=== PATIENT | female | born 1965 | race Caucasian/White ===

== ENCOUNTER 2017-10-03 08:32 | Emergency (ER) | payer OTHER ==
--- NOTE | 2017-10-03 10:24 | RAD ---
LEFT SHOULDER 3 VIEWS: HISTORY: Injury. COMPARISON: None. FINDINGS: Mild degenerative change of the left glenohumeral joint with osteophyte formation. No acute displace d fracture or malalignment. Mild degenerative disease at the acromioclavicular joint. IMPRESSION: Degenerative changes. No acute abnormality. POS: [facility]
== END 2017-10-03 09:25 | disposition home or self-care (01) ==
LOC: ERS 08:32
DX: M25.512 Pain in left shoulder (principal); E11.9 Type 2 diabetes mellitus without complications; G40.909 Epilepsy, unspecified, not intractable, without status epilepticus; J44.9 Chronic obstructive pulmonary disease, unspecified; Z79.82 Long term (current) use of aspirin; Z79.899 Other long term (current) drug therapy; Z79.891 Long term (current) use of opiate analgesic; W01.198A Fall on same level from slipping, tripping and stumbling with subsequent striking against other object, initial encounter; Y92.521 Bus station as the place of occurrence of the external cause

== ENCOUNTER 2017-11-14 20:22 | Inpatient (IN) | payer OTHER ==
--- NOTE | 2017-11-14 22:04 | RAD ---
PA AND LATERAL CHEST: Date: 11/14/17 INDICATION: Cough. History of antibiotics. COMPARISON: 04/23/12. FINDINGS: No consolidation is evident. Cardiomediastinal silhouette is within normal limits. There is mild thor acolumbar scoliosis. IMPRESSION: 1. No acute cardiopulmonary abnormality. 2 Stable calcified granuloma left upper lobe. POS: [facility]
[2017-11-14] MEDS ORDERED: Morphine 4 MG/ML VIAL ONE (22:10)
[2017-11-14] MEDS ORDERED: Ondansetron ODT 4 MG TAB ONE (22:10)
[2017-11-14 22:14] LABS: #Eosinphils 0.2 thou/uL (0.0-0.7); #Lymphocytes 1.7 thou/uL (1.20-3.40); #Monocytes 0.4 thou/uL (0.11-0.59); #Neutrophils 3.6 thou/uL (1.40-6.50); %Basophils 0.5 % (0.0-1.0); %Eosinophils 3.5 % (0.0-10.0); %Lymphocytes 28.5 % (21.0-51.0); %Monocytes 7.1 % (0.0-10.0); %Neutrophils 60.4 % (42.0-75.0); Hemoglobin 14.8 g/dL (12.0-16.0); Mean Corpuscular HGB CONC 33.1 g/dL (32.0-36.0); Mean Platelet Volume 6.4 fL (7.4-10.4); Platelet Count 141 thou/uL (130-400); RBC Distribution Width 12.6 % (11.5-14.5); Red Blood Cell (RBC) Count 4.34 mill/uL (4.20-5.40); White Blood Cell (WBC) Count 5.9 thou/uL (4.8-10.8)
[2017-11-14 22:33] LABS: ALT (SGPT) 42 U/L (8-55); AST (SGOT) 40 U/L (5-34); Albumin 3.8 g/dL (3.5-5.0); Alkaline Phosphatase 146 U/L (40-150); Anion Gap 9 mmol/L (10-20); BUN (Urea Nitrogen) 13 mg/dL (9.8-20.1); Bilirubin, Total 0.3 mg/dL (0.2-1.2); CK (CPK) 40 U/L (29-168); Calc. Creatinine Clearance 0 mL/min (70-130); Calcium 9.2 mg/dL (7.8-10.44); Carbon Dioxide 29 mmol/L (22-29); Chloride 104 mmol/L (98-107); Estimated GFR-MDRD Greater than 90; Globulin 2.9 g/dL (2.4-3.5); Glucose 103 mg/dL (70-105); Magnesium 1.8 mg/dL (1.6-2.6); Potassium 3.9 mmol/L (3.5-5.1); Protein, Total 6.7 g/dL (6.0-8.3); Sodium 138 mmol/L (136-145)
[2017-11-14 22:37] LABS: CKMB 1.1 ng/mL (0-6.6); Troponin I Less than 0.010 ng/mL (< 0.028)
--- NOTE | 2017-11-14 23:19 | CT ---
CTA THORAX UTILIZING IV CONTRAST AND 3D REFORMATTED IMAGING: Date: 11/14/17 COMPARISON: Prior CT dated 10/20/13. FINDINGS: No definite central pulmonary embolus is evident. Segmental branches are difficult to evaluate, parti cularly within the lower lobes, due to respiratory motion artifact. No appreciable filling defects se en within the segmental branches of the upper lobes, right middle lobe, or superior lingula. There are prominent left hilar lymph nodes that are new. One measures 1.9 cm within the left mid bill r region. Shotty appearing prevascular lymph nodes are stable. No additional lymphadenopathy is evide nt. There is a spiculated pulmonary nodule, which is new, within the superior segment of the left lower l obe on image 52 of series 3 measuring 1.6 cm. There is cirrhotic morphology to the liver. There is recanalization of the umbilical vein. Gallbladde r is surgically absent. Adrenal glands are normal appearing. There is diffuse osteopenia. There is multilevel spondylosis of the thoracic spine. There are healing right anterolateral 5th-8th rib fractures. There is a healed left lateral 10th rib fracture and post erolateral left 11th and 12th rib fracture. IMPRESSION: 1. No definite central pulmonary embolus. 2. Motion artifact limits evaluation of segmental pulmonary branches of both lower lobes. 3. Spiculated pulmonary nodule in the superior segment of the left upper lobe with some distal retic ular nodularity within the left upper lobe suspicious for malignancy. The reticular nodularity may re flect some localized lymphangitic spread to the distal superior segment of the lower lobe versus surendra pheral bronchiolitis. There are enlarged lymph nodes in the left hilar region which are new which may reflect regional spread of disease to the lymph nodes. Follow-up PET scan is recommended. 4. Findings of cirrhosis and portal hypertension. 5. Emphysema. POS: [facility]
[2017-11-14 23:25] LABS: Actual Bicarbonate (HCO3a) 27.6 mEq/L (22-26); Base Excess (BEa) 1.3 mEq/L (0 (+/-) 2.5); CO2 Tension 50.4 mmHg (35.0-45.0); O2 Tension (PaO2) 58.4 mmHg (80.0-100.0); pH, Arterial 7.36 (7.35-7.45)
[2017-11-14 23:26] LABS: Analyzer IN Cardio ER; Calcium, Ionized 1.3 mmol/L (1.12-1.30); Hematocrit-ABG 43.3 % (36.0-47.0); Hemoglobin (Hb) 13.9 g/dL (12.0-16.0); Puncture Site LRA
[2017-11-14] MEDS ORDERED: Dexamethasone 4 mg/ml Vial ONE (23:34)
[2017-11-15 00:24] LABS: Bilirubin Negative (Negative); Blood, Urine Negative (Negative); Clarity CLEAR (Clear); Glucose, Urine (Dipstick) Negative (Negative); Leukocyte Negative (Negative); Nitrite Negative (Negative); Protein, Urine (Dipstick) Negative (Neg-Trace); Urobilinogen 0.2 mg/dL (0.2-1.0)
[2017-11-15 00:43] LABS: Specific Gravity, Urine 1.056 (1.002-1.036)
[2017-11-15] MEDS ORDERED: Morphine 4 MG/ML VIAL ONE (01:25)
[2017-11-15 02:07] LABS: Troponin I Less than 0.010 ng/mL (< 0.028)
[2017-11-15] MEDS ORDERED: Morphine 4 MG/ML VIAL SLOW IVP PRN ×2 (02:34)
[2017-11-15] MEDS ORDERED: Lorazepam 2 MG/ML VIAL SLOW IVP PRN (02:36)
[2017-11-15] MEDS ORDERED: Sodium Chloride 0.9% 1,000 ML IV SCH (02:45)
[2017-11-15] MEDS ORDERED: Benzonatate 100 MG CAP PO PRN (03:42)
[2017-11-15] MEDS ORDERED: Acetaminophen 325 MG TAB PO PRN (03:42)
[2017-11-15] MEDS ORDERED: Diabetic Tussin 200 MG/10 ML UDCUP PO PRN (03:42)
[2017-11-15] MEDS ORDERED: Mag-Al 1200 mg/1200 mg/30 ML UDCUP PO PRN (03:42)
[2017-11-15] MEDS ORDERED: Bisacodyl 5 MG TAB PO PRN ×2 (03:42)
[2017-11-15] MEDS ORDERED: Nitroglycerin 0.4 MG TAB (25 Tab Bottle) SL PRN (03:42)
[2017-11-15] MEDS ORDERED: Ondansetron HCl/PF 4 MG/2 ML Vial IVP PRN (03:42)
[2017-11-15] MEDS ORDERED: Loratadine 10 MG TAB PO PRN (03:42)
[2017-11-15] MEDS ORDERED: hydrALAZINE 20 MG/ML VIAL SLOW IVP PRN (03:42)
[2017-11-15] MEDS ORDERED: cloNIDine 0.1 MG TAB PO PRN (03:42)
[2017-11-15] MEDS ORDERED: Senokot 8.6 MG TAB PO PRN (03:42)
[2017-11-15] MEDS ORDERED: Calcium Carbonate 500 MG ChewTAB PO PRN (03:42)
[2017-11-15] MEDS ORDERED: HumaLOG 300 UNITS/3 ML VIAL SC PRN ×2 (04:15)
[2017-11-15] MEDS ORDERED: Dextrose 5% in Water 1,000 ML IV PRN (04:15)
[2017-11-15] MEDS ORDERED: Dextrose 50% Abboject 50 ML SYRINGE SLOW IVP PRN (04:15)
[2017-11-15 05:00] VITALS: BMI 33.5
[2017-11-15 05:15] LABS: Troponin I Less than 0.010 ng/mL (< 0.028)
--- NOTE | 2017-11-15 05:20 | HP ---
DATE OF ADMISSION: 11/15/2017 PRIMARY CARE PHYSICIAN: Dr. Rojas PRIMARY MASTER DATA ANALYST: Dr. Worthington. CHIEF COMPLAINT: Worsening shortness of breath and persistent cough for 2 months. HISTORY OF PRESENT ILLNESS: Ms. Payton is a 52-year-old female with known history of obstructive slee p apnea: COPD, tobacco abuse, diabetes, hepatitis C, bipolar illness and liver cirrhosis, who came t o the emergency room with complaints of shortness of breath and cough for 2 months. History is mainly obtained by the patient herself and electronical medical records have been reviewed . According to Ms. Payton, she has been feeling poorly for about 2 months. She was living with her son and [id number] in poor living conditions, where she was not able to get her medications, her CPA P at night or her inhalers and nebulizers. She reports that they were doing drugs and smoking and sh e was exposed to this. She has been having shortness of breath, which has worsened over the course o f last 2 months and the persistent cough. She recently moved here with her brother to be out of the unhealthy environment and has set up care with her concert pianist, Dr. Worthington again. She is in the process of getting the sleep study done, but currently she is without the CPAP. She was treated as an outpatient by Dr. Worthington with the oral steroids and antibiotics recently for her persistent sym ptoms, but it did not help. She has been more and more short of breath and has been having severe di fficulty to lie flat and has to sleep propped up. She denies any fever or chills, but endorses gener alized weakness and malaise. She is bringing up greenish sputum with her cough. She denies any othe r recent illnesses. Upon presentation to the emergency room, she was 97% on room air, but according to the ER physician guerrero ssistaishwarya who admitted this patient, her oxygen saturation did drop to low 80s on ambulation. This re quired starting her on a BiPAP. She was diagnosed with having COPD exacerbation and was given nebuli zers as well as IV steroids in the form of Decadron. She is now being admitted to [facility] for COPD exac erbation leading to acute hypoxic respiratory failure. Since she has been up in the [facility]. She has been weaned off of the BiPAP and is comfortable on nasal cannula. PAST MEDICAL HISTORY: 1. Obstructive sleep apnea. 2. COPD. 3. Ongoing tobacco abuse. She smokes about 2.5 pack per day and according to her she is "quit" 5 da ys ago. 4. History of hepatitis C. 5. Diabetes mellitus. 6. Schizoaffective disorder. PAST SURGICAL HISTORY: 1. Cholecystectomy. 2. Hysterectomy. 3. Tonsillectomy. 4. Bilateral knee replacement. ALLERGIES: No known medication allergies. CURRENT MEDICATIONS: She is taking inhaler and DuoNebs again, but other than that she does not take any of the medication according to her. FAMILY HISTORY: Significant for coronary artery disease, diabetes, hypertension, and cancer. SOCIAL HISTORY: A [id number] smoking history or 2.5 pack per a day. No history of drug or alcohol abuse. She is currently living with one of her friends and her brother. REVIEW OF SYSTEMS: A 12-point review of systems was done. It is negative except those mentioned in the history and physical. The following complete review of systems was negative, unless otherwise me ntioned in the HPI or below: Constitutional: Weight loss or gain, ability to conduct usual activiti es. Skin: Rash, itching. Eyes: Double vision, pain. ENT/Mouth: Nose bleeding, neck stiffness, p ain, tenderness. Cardiovascular: Palpitations, dyspnea on exertion, orthopnea. Respiratory: Short ness of breath, wheezing, cough, hemoptysis, fever or night sweats. Gastrointestinal: Poor appetite , abdominal pain, heartburn, nausea, vomiting, constipation, or diarrhea. Genitourinary: Urgency, f requency, dysuria, nocturia. Musculoskeletal: Pain, swelling. Neurologic/Psychiatric: Anxiety, de pression. Allergy/Immunologic: Skin rash, bleeding tendency. LABORATORY DATA: CBC is unremarkable. D-dimer 0.64. ABG upon presentation showed pH of 7.36, pCO2 of 50, pO2 of 58. Serum chemistries unremarkable. Troponin less than 0.010 x2. BNP normal. Urinal ysis normal. Chest x-ray by my review has no evidence to suggest any infiltrate, edema. CT angio of the thorax was done because of elevated D-dimer. It is negative for any pulmonary embolism, but did show spiculated pulmonary nodule in the superior segment of the left upper lobe with some associated lymphadenopathy in the perihilar region. She also has findings of cirrhosis and portal hypertension , and emphysema. PHYSICAL EXAMINATION: VITAL SIGNS: She is currently saturating 95% on 2 liters nasal cannula. Heart rate is 72, blood pre ssure upon presentation 135/83, respirations 20, temperature 99.1. GENERAL: No acute distress. She appears comfortable at this time. Awake, alert, oriented x3. HEENT: Mucous membrane is moist and pink. No oropharyngeal exudate or erythema. NECK: Supple without any lymphadenopathy, JVD or bruit. CHEST: Clear to auscultation without any wheezing, rales or rhonchi at this time. Rate and rhythm i s regular without any murmur, rubs or gallops. ABDOMEN: Soft, nontender, nondistended with positive bowel sounds. EXTREMITIES: Free of any cyanosis, clubbing, or edema. NEUROLOGIC: Nonfocal. SKIN: Free of any rashes or bruises. I feel warm and dry to touch. IMPRESSION AND PLAN: 1. Acute hypoxic respiratory failure. This is secondary to chronic obstructive pulmonary disease ex acerbation. The patient has been started on BiPAP and since then has been weaned off of it and is cu rrently saturating well on oxygen with nasal cannula. She will be continued on IV steroids in the fo rm of methylprednisolone as well as nebulizer scheduled as needed. We will start her on CPAP in the hospital at night for her history of sleep apnea. She will be given oral antibiotic empirically for COPD exacerbation as she has been having productive cough. Add Mucinex and incentive spirometry as w ell. 2. Pulmonary nodule. We will request consultation with Pulmonary Medicine while in the hospital. Nancy daley, the patient can follow up with her own concert pianist, Dr. Worthington as an outpatient. She would require CT scan of the chest at least every few months to monitor the progress of the pulmonary nodule. 3. Tobacco abuse. The patient has been counseled. We will continue her nicotine patch, which she s tates she has been using for the last few days. 4. History of cirrhosis and portal hypertension likely because of hepatitis C. Currently, the patie nt is not having any acute liver failure and appears euvolemic. We will avoid any IV fluids to preve nt fluid overload. 5. Obstructive sleep apnea, CPAP at night while she is in the hospital. She will finish her sleep s tudy as an outpatient with her concert pianist. 6. History of schizoaffective disorder, currently not on any medications and appears stable. 7. Diabetes mellitus. Once again at this time she is not taking any medications for this and her bl ood sugar is 103. I am not sure this is a true diagnosis or not. At this time, she will not be deonna aquiles with metformin, but because she is going to be on the Solu-Medrol, we will start her on insulin s liding scale with p.r.n. coverage with frequent Accu-Cheks. 8. Code status: FULL CODE. Discussed with the patient. DISPOSITION: Ms. Payton is currently being admitted to the hospital for acute hypoxic respiratory dereck lure due to acute chronic obstructive pulmonary disease exacerbation. Estimated length of stay is at least 2-3 midnight. Further management will depend upon her clinical course. She is currently hemo dynamically stable and has been weaned off of BiPAP successfully so far.
[2017-11-15] MEDS: Lorazepam 1 MG TAB PO PRN ×2 (05:31→17:57)
[2017-11-15] MEDS ORDERED: Spiriva 18 MCG CAP (Box of 5 Caps) INH SCH (07:00)
[2017-11-15] MEDS: HYDROcodone/Acetaminophen 5/325 mg Tablet PO PRN ×3 (08:39→20:27)
[2017-11-15] MEDS: Famotidine 20 MG TAB PO SCH ×2 (08:39→20:27)
[2017-11-15] MEDS: Enoxaparin Sodium 40 MG/0.4 ML SYRINGE SC SCH (08:39)
[2017-11-15] MEDS: guaiFENesin ER 600 MG TAB PO SCH ×2 (08:39→20:27)
[2017-11-15] MEDS: Nicotine 21 MG PATCH TD SCH (08:40)
[2017-11-15] MEDS: Amoxicillin/Potassium Clav 875 MG TAB PO SCH ×2 (08:46→20:27)
--- NOTE | 2017-11-15 08:46 | CON ---
DATE OF CONSULTATION: 11/15/2017 REASON FOR CONSULTATION: COPD exacerbation and lung nodule. HISTORY OF PRESENT ILLNESS: The patient is a 52-year-old female who sees Dr. Oliveira for pulmonary c oncerns. She was admitted to the hospital last night with a COPD exacerbation. She was briefly on B iPAP, but that was taken off this morning. She now feels better. She had incidental finding of a 1. 5 cm left lower lobe pulmonary nodule, which appears to be in the superior segment. She has never be en told that she had a pulmonary nodule in the past. She has a 2-1/2 half pack per day history of smoking, but says she quit smoking last after navdeep eing prescribed nicotine patch by her primary doctor. PAST MEDICAL HISTORY: 1. Chronic obstructive pulmonary disease. 2. Obstructive sleep apnea. 3. Tobacco abuse. 4. Hepatitis C. 5. Diabetes mellitus. 6. Schizoaffective disorder. PAST SURGICAL HISTORY: 1. Cholecystectomy. 2. Hysterectomy. 3. Tonsillectomy. 4. Bilateral knee replacement. ALLERGIES: None. MEDICATIONS PRIOR TO ADMISSION: DuoNeb. FAMILY MEDICAL HISTORY: Remarkable for diabetes, hypertension, coronary artery disease, cancer. SOCIAL HISTORY: Two and a half pack per day history of smoking for the last 40 years. Does not cons ume alcohol or use illicit drugs. REVIEW OF SYSTEMS: Negative. PHYSICAL EXAMINATION: VITAL SIGNS: Temperature 98.4, pulse 80, respirations 15, O2 sat 98% on 2 liters, blood pressure 126 /85. GENERAL: She is awake and alert, in no distress. HEENT: Unremarkable. NECK: No JVD, no bruits. LUNGS: Very distant and expiratory wheezing with no accessory muscle use. CARDIOVASCULAR: S1, S2 regular. ABDOMEN: Soft, nontender. EXTREMITIES: No clubbing, cyanosis, or edema. LABORATORY DATA: White blood cell count 5.9, hematocrit 44, platelet count 141. PH 7.36, pCO2 50, p O2 58. Sodium 138, potassium 3.9, chloride 104, CO2 29, BUN 13, creatinine 0.6, glucose 103. ASSESSMENT: 1. Chronic obstructive pulmonary disease with exacerbation. 2. Tobacco abuse. 3. A 1.5 cm left lower lobe lung nodule with a left hilar lymph node. RECOMMENDATIONS: 1. She will be transferred to the floor. 2. Continue steroids, nebulization treatments. 3. Discontinue BiPAP. 4. She will need further workup for the lung nodule as an outpatient. She has seen Dr. Mesa here in the past and also was seeing Dr. Oliveira at [facility].
[2017-11-15] MEDS ORDERED: Meloxicam 15 MG TAB PO SCH (23:45)
[2017-11-16] MEDS: HYDROcodone/Acetaminophen 5/325 mg Tablet PO PRN ×3 (04:40→14:57)
[2017-11-16 04:48] LABS: #Lymphocytes 0.7 thou/uL (1.20-3.40); #Monocytes 0.2 thou/uL (0.11-0.59); #Neutrophils 6.2 thou/uL (1.40-6.50); %Basophils 0.1 % (0.0-1.0); %Eosinophils 0.1 % (0.0-10.0); %Lymphocytes 10.2 % (21.0-51.0); %Monocytes 3.1 % (0.0-10.0); %Neutrophils 86.5 % (42.0-75.0); Hemoglobin 14.8 g/dL (12.0-16.0); Mean Corpuscular HGB CONC 33.6 g/dL (32.0-36.0); Mean Corpuscular Hemoglobin 34.5 pg (27.0-31.0); Mean Platelet Volume 6.7 fL (7.4-10.4); Platelet Count 131 thou/uL (130-400); RBC Distribution Width 12.4 % (11.5-14.5); Red Blood Cell (RBC) Count 4.27 mill/uL (4.20-5.40); White Blood Cell (WBC) Count 7.1 thou/uL (4.8-10.8)
[2017-11-16 05:21] LABS: Anion Gap 12 mmol/L (10-20); BUN (Urea Nitrogen) 8 mg/dL (9.8-20.1); Calc. Creatinine Clearance 184 mL/min (70-130); Calcium 9.5 mg/dL (7.8-10.44); Carbon Dioxide 22 mmol/L (22-29); Chloride 109 mmol/L (98-107); Estimated GFR-MDRD Greater than 90; Glucose 153 mg/dL (70-105); Potassium 4.2 mmol/L (3.5-5.1); Sodium 139 mmol/L (136-145)
[2017-11-16] MEDS ORDERED: Meloxicam 15 MG TAB PO SCH ×2 (09:00→21:00)
[2017-11-16] MEDS: Amoxicillin/Potassium Clav 875 MG TAB PO SCH (09:20)
[2017-11-16] MEDS: guaiFENesin ER 600 MG TAB PO SCH (09:20)
[2017-11-16] MEDS: Enoxaparin Sodium 40 MG/0.4 ML SYRINGE SC SCH (09:21)
[2017-11-16] MEDS: Nicotine 21 MG PATCH TD SCH (09:22)
--- NOTE | 2017-11-16 09:55 | PRG ---
DATE OF SERVICE: 11/16/2017 Remote history of seeing the patient some 5-6 years ago. [facility] She presented with increased shortness of breath and cough. She smoked up to a pack and a half about a week ago. She is coughing and wheezing, but she seems much better. She is scheduled to have an outpatient sleep study done in the near future. PHYSICAL EXAMINATION: VITAL SIGNS: Sats are 93 on room air, respiration 16, temperature 97, blood pressure 120/87. CHEST: Chest reveals decreased breath sounds, no wheezing. CARDIAC: Normal S1, S2. No gallops. ABDOMEN: Soft, no masses. IMPRESSION: 1. Chronic obstructive pulmonary disease. 2. Sleep apnea. 3. Bipolar. PLAN: Her lab looks normal including electrolytes, CBC. Suggest switching over to oral prednisone. She can be discharged home to follow up with her primary care telecom analyst.
[2017-11-16] MEDS: Famotidine 20 MG TAB PO SCH (10:01)
[2017-11-16 11:11] VITALS: BP 135/88; TEMP 97.9
--- NOTE | 2017-11-16 19:14 | DIS ---
DATE OF ADMISSION: 11/15/2017 DATE OF DISCHARGE: 11/16/2017 PRIMARY CARE PROVIDER: Tarik Rojas D.O. DISCHARGE DIAGNOSES: 1. Acute hypoxic respiratory failure. 2. Chronic obstructive pulmonary disease exacerbation. 3. Pulmonary nodule. CONDITION OF PATIENT ON THE DAY OF DISCHARGE: Stable. I assess Ms. Payton on the day of discharge. She denies any chest pain or shortness of breath. Cough is better. Vital signs are stable and she i s saturating well on room air. S1 and S2 are heard, regular. Lungs are clear to auscultation bilate rally. CONSULTATIONS DURING THIS HOSPITALIZATION: Pulmonology, Dr. Sharpe. DISCHARGE MEDICATIONS: Albuterol nebulizers 3 times a day as needed, Augmentin 875 mg 2 times a day for 5 more days, Coreg 25 mg 2 times a day, esomeprazole 40 mg daily, Lasix 40 mg daily, gabapentin 3 00 mg 2 times a day, meloxicam 15 mg daily, metformin 500 mg 2 times a day, Medrol Dosepak, nicotine 21 mg daily patch, phenytoin 300 mg at bedtime and 200 mg in the morning, pravastatin 40 mg at bedtim e, quetiapine 400 mg at bedtime, VESIcare 10 mg daily, Spiriva 18 mcg inhalation daily, Topamax 50 mg at bedtime and Venlafaxine 150 mg daily. HOSPITAL COURSE: Ms. Payton is a pleasant 52-year-old lady who was admitted to [facility] on 11/15/2017 for acute hypoxic respiratory failure due to chronic obstructive pulmonary disease. Please refer to history and physical note dictated by Dr. Morgan for further information. She was briefly treated with bilevel positive airway pressure and subsequently was treated with oxyg en, steroids, bronchodilators and antibiotics. She improved clinically. She also had a CT angiogram of the chest on 11/14/2017, which did not show any definite central pulmo nary embolus. She had a spiculated pulmonary nodule in the superior segment of the left upper lobe w ith some distal reticular nodularity within the left upper lobe suspicious for malignancy. The retic ular nodularity may reflect some localized lymphangitic spread to the distal superior segment of the lower lobe versus peripheral bronchiolitis. There are enlarged lymph nodes in the left hilar region which are new, which may reflect regional spread of disease to the lymph nodes. Radiologist recommen ds follow up PET scan. After discussion with the patient, she wants to follow up with her own manager entry regarding the CT scan findings. She has also been advised to stop smoking. On the day of discharge, she has normal white count, normal hemoglobin, normal platelet count, normal sodium, normal potassium, and creatinine of 0.52. Many thanks for allowing me to participate in your patient's care. Please feel free to contact me wi th any questions or concerns. DISCHARGE DESTINATION: Home. TOTAL AMOUNT OF TIME SPENT COORDINATING THIS DISCHARGE: 33 minutes.
== END 2017-11-16 16:50 | disposition home or self-care (01) | DRG 190 ==
LOC: ERS 20:22 → IMCU/EMU 11-15 01:09 → T4-B 11-15 09:45
PROVIDERS: ADMIT Internal Medicine; ATTEND Internal Medicine
DX: J44.1 Chronic obstructive pulmonary disease with (acute) exacerbation (principal); J96.01 Acute respiratory failure with hypoxia; G47.30 Sleep apnea, unspecified; F31.9 Bipolar disorder, unspecified; F17.200 Nicotine dependence, unspecified, uncomplicated; B19.20 Unspecified viral hepatitis C without hepatic coma; E11.9 Type 2 diabetes mellitus without complications; F25.9 Schizoaffective disorder, unspecified; Z96.653 Presence of artificial knee joint, bilateral; R91.1 Solitary pulmonary nodule
CPT/HCPCS: 36415; 36416; 71046; 71275; 80048; 80053; 81003; 82550; 82553; 82805; 83605; 83735; 83880; 84484; 85025; 85379; 87040; 87077; 87086; 87186; 90471; 90732; 93005; 94640; 94660; 96374; 96376; G0009; J0360; J1100; J1650; J2270; J2920; J7620; Q0162

== ENCOUNTER 2017-12-27 07:57 | Outpatient (CLI) | payer OTHER ==
--- NOTE | 2017-12-27 10:35 | PET ---
PET CT: HISTORY: A 52-year-old female with solitary pulmonary nodule in the superior segment of the left lower lobe on CT scan of chest dated 11/14/17. TECHNIQUE: PET scanning with CT attenuation correction was performed from the base of the brain through the prox imal thighs following the intravenous administration of 12.2 mCi of [id number] in the rig ht antecubital fossa. Imaging is performed after an uptake interval of 48 minutes. CORRELATION: CTA chest 11/14/17. COMPARISON: No previous PET scans are available for comparison. FINDINGS: The 1.6 cm parenchymal nodule in the superior segment of the left lower lobe does not demonstrate abn ormal FDG localization and has an SUV of 1.32. However, there is hypermetabolic activity in the left hilar lymphadenopathy with an acute SUV of 4.3. In the right side of the neck at the level of the medial aspect of the right parotid gland, there is focal increased uptake with an SUV of 4. It cannot be said with certainty if this is part of the med ial parotid gland or a lymph node. No hypermetabolic mediastinal, right hilar, axillary, or abdominopelvic lymph nodes are seen. No hyp ermetabolic liver, adrenal, or skeletal lesions are identified. There is physiologic activity in the heart, GI and tracts. Increased uptake in the skeletal muscu lature also appears to be physiologic. The CT scan used for attenuation correction demonstrates no evidence of pleural effusions or ascites. The liver is cirrhotic. IMPRESSION: 1. Hypermetabolic left hilar lymphadenopathy is a suspicious finding. 2. The pulmonary nodule in the superior segment of the left lower lobe demonstrates no abnormal fluo rodeoxyglucose localization. 3. Focally increased uptake in the region of the right medial parotid gland warrants further evaluat ion with a contrast-enhanced CT scan of the neck. POS: [facility]
== END 2017-12-27 07:58 | disposition home or self-care (01) ==
LOC: PET 07:57
PROVIDERS: ATTEND Internal Medicine Pulmonary Disease
DX: R91.1 Solitary pulmonary nodule (principal); R93.8 Abnormal findings on diagnostic imaging of other specified body structures
CPT/HCPCS: 78815; A9552

== ENCOUNTER 2018-01-06 17:57 | Emergency (ER) | payer OTHER ==
[2018-01-06] MEDS ORDERED: Ibuprofen 200 MG TAB ONE (18:28)
--- NOTE | 2018-01-06 18:45 | RAD ---
PA CHEST AND RIGHT RIBS: 01/06/18 Total four views. HISTORY: Injury. The lung garduno are clear. Heart and mediastinum unremarkable. Ribs appear unremarkable. No acute rib fracture identified. IMPRESSION: No acute findings. POS: [facility]
== END 2018-01-06 19:25 | disposition home or self-care (01) ==
LOC: ERS 17:57
DX: S20.211A Contusion of right front wall of thorax, initial encounter (principal); I50.9 Heart failure, unspecified; E11.9 Type 2 diabetes mellitus without complications; K74.60 Unspecified cirrhosis of liver; J45.909 Unspecified asthma, uncomplicated; F17.210 Nicotine dependence, cigarettes, uncomplicated; Z79.84 Long term (current) use of oral hypoglycemic drugs; Z79.899 Other long term (current) drug therapy; G40.909 Epilepsy, unspecified, not intractable, without status epilepticus; W22.8XXA Striking against or struck by other objects, initial encounter

== ENCOUNTER 2018-01-08 12:09 | Emergency (ER) | payer OTHER ==
[2018-01-08 12:55] LABS: Bilirubin Negative (Negative); Blood, Urine Negative (Negative); Clarity CLEAR (Clear); Glucose, Urine (Dipstick) Negative (Negative); Leukocyte Negative (Negative); Nitrite Negative (Negative); Protein, Urine (Dipstick) Negative (Neg-Trace); Specific Gravity, Urine 1.016 (1.002-1.036)
== END 2018-01-08 14:48 | disposition home or self-care (01) ==
LOC: ERS 12:09
DX: G89.29 Other chronic pain (principal); M54.9 Dorsalgia, unspecified; F31.9 Bipolar disorder, unspecified; G40.909 Epilepsy, unspecified, not intractable, without status epilepticus; I50.9 Heart failure, unspecified; E11.9 Type 2 diabetes mellitus without complications; J44.9 Chronic obstructive pulmonary disease, unspecified; G47.30 Sleep apnea, unspecified; F17.210 Nicotine dependence, cigarettes, uncomplicated
CPT/HCPCS: 81003; 99285

== ENCOUNTER 2018-05-23 20:49 | Emergency (ER) | payer OTHER ==
[2018-05-23] MEDS ORDERED: Ketorolac Tromethamine 60 MG/2 ML VIAL ONE (21:47)
--- NOTE | 2018-05-23 22:25 | RAD ---
LUMBAR SPINE THREE VIEWS: History: Back pain after fall. FINDINGS: Lumbar vertebrae maintain height. Degenerative osteophytes are seen. Facet hypertrophy. Slight disha listhesis of L4-5. No evidence of acute compression. IMPRESSION: Degenerative changes as described. POS: [facility]
--- NOTE | 2018-05-23 22:26 | RAD ---
RIGHT HIP TWO VIEWS: History: Fall with hip pain. FINDINGS: No evidence of fracture. Femoral head contour is normal. No osseous abnormality. IMPRESSION: No acute finding. POS: [facility]
== END 2018-05-23 22:16 | disposition home or self-care (01) ==
LOC: ERS 20:49
DX: S70.01XA Contusion of right hip, initial encounter (principal); G40.909 Epilepsy, unspecified, not intractable, without status epilepticus; I50.9 Heart failure, unspecified; E11.9 Type 2 diabetes mellitus without complications; J45.909 Unspecified asthma, uncomplicated; G47.30 Sleep apnea, unspecified; F31.9 Bipolar disorder, unspecified; F20.9 Schizophrenia, unspecified; F17.210 Nicotine dependence, cigarettes, uncomplicated; W17.89XA Other fall from one level to another, initial encounter
CPT/HCPCS: 72100; 96372; J1885

== ENCOUNTER 2018-06-19 16:21 | Emergency (ER) | payer OTHER ==
--- NOTE | 2018-06-19 17:59 | CT ---
CT CERVICAL SPINE NONCONTRAST: HISTORY: 52-year-old female status post acute cervical trauma from fall. FINDINGS: There are no jumped or perched facets. There is no evidence of acute fracture. The vertebral body h eights are maintained. There is no prevertebral soft tissue swelling. IMPRESSION: No evidence of acute fracture or acute traumatic subluxation. jennifer POS: [facility]
--- NOTE | 2018-06-19 18:05 | CT ---
CT HEAD WITHOUT CONTRAST: Technique: Multiple contiguous axial images were obtained through the head without IV enhancement. Indications: Trauma. Fall with injury to head. FINDINGS: Ventricles have normal size and position. No evidence of intracranial hemorrhage. No mass or edema id entified. IMPRESSION: No acute abnormality identified. POS: [facility]
== END 2018-06-19 18:30 | disposition home or self-care (01) ==
LOC: ERS 16:21
DX: S09.90XA Unspecified injury of head, initial encounter (principal); G40.909 Epilepsy, unspecified, not intractable, without status epilepticus; I50.9 Heart failure, unspecified; E11.9 Type 2 diabetes mellitus without complications; J45.909 Unspecified asthma, uncomplicated; M19.90 Unspecified osteoarthritis, unspecified site; G47.30 Sleep apnea, unspecified; F20.9 Schizophrenia, unspecified; F31.9 Bipolar disorder, unspecified; F17.210 Nicotine dependence, cigarettes, uncomplicated; Z79.899 Other long term (current) drug therapy; Z79.84 Long term (current) use of oral hypoglycemic drugs; W01.0XXA Fall on same level from slipping, tripping and stumbling without subsequent striking against object, initial encounter
CPT/HCPCS: 70450; 72125

== ENCOUNTER 2019-06-13 14:04 | Outpatient (CLI) | payer OTHER ==
--- NOTE | 2019-06-13 15:00 | MMO ---
Bilateral MAMMO Bilat Diag DDI+SHILOH. CLINICAL HISTORY: Patient is 53 years old and is seen for diagnostic exam and lump or thickening in the left breast. The patient has the following family history of breast cancer: paternal aunt. The patient has no personal history of cancer. VIEWS: The views performed were: bilateral craniocaudal with tomosynthesis; bilateral mediolateral oblique with tomosynthesis; and bilateral mediolateral with tomosynthesis. FILMS COMPARED: The present examination has been compared to prior imaging studies performed at [facility] on 06/13/2019, and at [facility] on 07/27/2007 and 03/07/2009. This study has been interpreted with the assistance of computer-aided detection. MAMMOGRAM FINDINGS: There are scattered fibroglandular densities. There are benign appearing calcifications seen in both breasts. There are no suspicious masses, suspicious calcifications, or new areas of architectural distortion. IMPRESSION: THERE IS NO MAMMOGRAPHIC EVIDENCE OF MALIGNANCY. A ROUTINE FOLLOW-UP MAMMOGRAM IN 1 YEAR IS RECOMMENDED. THE RESULTS OF THIS EXAM WERE SENT TO THE PATIENT. ACR BI-RADS Category 2 - Benign finding MAMMOGRAPHY NOTE: 1. A negative mammogram report should not delay a biopsy if a dominant of clinically suspicious mass is present. 2. Approximately 10% to 15% of breast cancers are not detected by mammography. 3. Adenosis and dense breasts may obscure an underlying neoplasm. Reported by: ROSEMARIE LAUGHLIN MD Electonically Signed: [id number]
--- NOTE | 2019-06-13 15:05 | ULT ---
LEFT BREAST ULTRASOUND: Date: 06/13/19 COMPARISON: Mammogram dated 06/13/19. HISTORY: Palpable mass in the anterior left breast at 12 o'clock, approximately 1.0 cm from the nipple. TECHNIQUE: Multiplanar Mercado scale and color Doppler images were obtained in a left breast ultrasound. FINDINGS: Normal appearing breast parenchyma is seen at the area of palpable abnormality. No suspicious shadowi ng or mass is seen. IMPRESSION: BI-RADS Category 1 - Negative. Annual screening mammography is recommended. POS: [facility]
== END 2019-06-13 14:05 | disposition home or self-care (01) ==
LOC: BICMAMMO 14:04
PROVIDERS: ATTEND Family Medicine
DX: N63.0 Unspecified lump in unspecified breast (principal)
CPT/HCPCS: 77066; G0279

== ENCOUNTER 2019-06-15 20:59 | Emergency (ER) | payer OTHER ==
[2019-06-15 21:25] LABS: #Basophils 0.1 thou/uL (0.0-0.2); #Eosinphils 0.2 thou/uL (0.0-0.7); #Lymphocytes 3.5 thou/uL (1.20-3.40); #Monocytes 0.6 thou/uL (0.11-0.59); #Neutrophils 5.3 thou/uL (1.40-6.50); %Basophils 0.8 % (0.0-1.0); %Eosinophils 1.9 % (0.0-10.0); %Lymphocytes 36.2 % (21.0-51.0); %Monocytes 5.7 % (0.0-10.0); %Neutrophils 55.3 % (42.0-75.0); Hemoglobin 15.5 g/dL (12.0-16.0); Mean Corpuscular HGB CONC 34.2 g/dL (32.0-36.0); Mean Corpuscular Hemoglobin 34.2 pg (27.0-31.0); Mean Corpuscular Volume 99.9 fL (78.0-98.0); Mean Platelet Volume 6.7 fL (7.4-10.4); Platelet Count 175 thou/uL (130-400); RBC Distribution Width 12.2 % (11.5-14.5); Red Blood Cell (RBC) Count 4.53 mill/uL (4.20-5.40); White Blood Cell (WBC) Count 9.6 thou/uL (4.8-10.8)
--- NOTE | 2019-06-15 21:52 | RAD ---
EXAM: Portable chest PROVIDED CLINICAL HISTORY: Dyspnea COMPARISON: 10/20/2013 FINDINGS: Cardiac and mediastinal silhouette is within normal limits. No focal consolidation, pleural fluid or pneumothorax evident. IMPRESSION: No evidence for an acute cardiopulmonary process.
[2019-06-15 22:27] LABS: Albumin 4.2 g/dL (3.5-5.0)
[2019-06-15 22:28] LABS: Chloride 104 mmol/L (98-107); Sodium 141 mmol/L (136-145)
[2019-06-15 22:29] LABS: Calcium 9.2 mg/dL (7.8-10.44); Glucose 117 mg/dL (70-105)
[2019-06-15 22:30] LABS: Globulin 2.6 g/dL (2.4-3.5); Protein, Total 6.8 g/dL (6.0-8.3)
[2019-06-15 22:31] LABS: Anion Gap 11 mmol/L (10-20); Bilirubin, Total 0.4 mg/dL (0.2-1.2); Carbon Dioxide 30 mmol/L (22-29)
[2019-06-15 22:32] LABS: Alkaline Phosphatase 106 U/L (40-110)
[2019-06-15 22:33] LABS: Calc. Creatinine Clearance 0 mL/min (70-130); Estimated GFR-MDRD 76
[2019-06-15 22:34] LABS: BUN (Urea Nitrogen) 15 mg/dL (9.8-20.1)
[2019-06-15 22:35] LABS: ALT (SGPT) 31 U/L (8-55); AST (SGOT) 21 U/L (5-34)
== END 2019-06-15 23:15 | disposition home or self-care (01) ==
LOC: ERS 20:59
DX: J44.1 Chronic obstructive pulmonary disease with (acute) exacerbation (principal); G40.909 Epilepsy, unspecified, not intractable, without status epilepticus; I50.9 Heart failure, unspecified; E11.9 Type 2 diabetes mellitus without complications; J45.909 Unspecified asthma, uncomplicated; M19.90 Unspecified osteoarthritis, unspecified site; G47.30 Sleep apnea, unspecified; F20.9 Schizophrenia, unspecified; F31.9 Bipolar disorder, unspecified; F17.210 Nicotine dependence, cigarettes, uncomplicated; Z79.84 Long term (current) use of oral hypoglycemic drugs; Z71.6 Tobacco abuse counseling; Z79.899 Other long term (current) drug therapy
CPT/HCPCS: 36415; 71045; 80053; 85025; 93005

== ENCOUNTER 2019-07-22 00:53 | Emergency (ER) | payer OTHER ==
[2019-07-22] MEDS ORDERED: Ketorolac Tromethamine 30 MG/ML VIAL ONE (01:07)
--- NOTE | 2019-07-22 08:03 | RAD ---
EXAM: XR Hip Lt 2-3 View PROVIDED CLINICAL HISTORY: Pain FINDINGS: There is no evidence for fracture or other acute osseous abnormality. Postoperative changes of left t otal hip arthroplasty are demonstrated, without evidence for hardware loosening or migration. IMPRESSION: No evidence for an acute osseous abnormality. If there is persistent clinical concern, conservative m anagement and follow-up imaging advised.
== END 2019-07-22 02:05 | disposition home or self-care (01) ==
LOC: ERS 00:53
DX: S39.011A Strain of muscle, fascia and tendon of abdomen, initial encounter (principal); M79.605 Pain in left leg; G40.909 Epilepsy, unspecified, not intractable, without status epilepticus; I50.9 Heart failure, unspecified; E11.9 Type 2 diabetes mellitus without complications; J43.9 Emphysema, unspecified; M19.90 Unspecified osteoarthritis, unspecified site; G47.30 Sleep apnea, unspecified; F31.9 Bipolar disorder, unspecified; F20.9 Schizophrenia, unspecified; F17.210 Nicotine dependence, cigarettes, uncomplicated; Z79.84 Long term (current) use of oral hypoglycemic drugs; Z79.899 Other long term (current) drug therapy; W01.0XXA Fall on same level from slipping, tripping and stumbling without subsequent striking against object, initial encounter
CPT/HCPCS: 96372; J1885

== ENCOUNTER 2019-08-01 18:17 | Emergency (ER) | payer OTHER ==
[2019-08-01] MEDS ORDERED: Ketorolac Tromethamine 30 MG/ML VIAL ONE (20:52)
--- NOTE | 2019-08-01 21:09 | CT ---
CT OF BRAIN PERFORMED WITHOUT CONTRAST ENHANCEMENT: 08/01/19 HISTORY: Fall with head injury. COMPARISON: 06/19/18 study. The ventricular and cisternal system is within normal limits. There are no signs of intracerebral hem orrhage or extra-axial fluid collections. Mastoid air cells and visualized sinuses are clear. IMPRESSION: No acute intracranial abnormalities. POS: [facility]
--- NOTE | 2019-08-01 21:24 | RAD ---
XR Hip Lt 2-3 View HISTORY: Hip pain status post fall. COMPARISON: None. FINDINGS: A total hip prosthesis is in good position. No loosening or fracture. IMPRESSION: No acute injury.
--- NOTE | 2019-08-01 21:26 | CT ---
CT OF CERVICAL SPINE PERFORMED WITHOUT CONTRAST ENHANCEMENT: 08/01/19 HISTORY: Fall with neck injury. COMPARISON: A 06/19/18 study. The vertebral bodies are normal in height. There is marked disc narrowing at C5-6. There is also fusi on across the right facet joints at this level. At the C3-4 level, there is bilateral foraminal narro wing which is more severe on the left. Mild bilateral foraminal narrowing is seen at C4-5. There is n o CT evidence for fracture. Lung apices show some emphysematous change. IMPRESSION: No CT evidence of fracture of the cervical spine. POS: [facility]
== END 2019-08-01 21:53 | disposition home or self-care (01) ==
LOC: ERS 18:17
DX: S00.93XA Contusion of unspecified part of head, initial encounter (principal); M25.552 Pain in left hip; G40.909 Epilepsy, unspecified, not intractable, without status epilepticus; I50.9 Heart failure, unspecified; E11.9 Type 2 diabetes mellitus without complications; B19.20 Unspecified viral hepatitis C without hepatic coma; J45.909 Unspecified asthma, uncomplicated; M19.90 Unspecified osteoarthritis, unspecified site; G47.30 Sleep apnea, unspecified; F31.9 Bipolar disorder, unspecified; F20.9 Schizophrenia, unspecified; F17.210 Nicotine dependence, cigarettes, uncomplicated; W05.0XXA Fall from non-moving wheelchair, initial encounter
CPT/HCPCS: 36415; 70450; 72125; 80053; 80076; 80185; 80203; 85025; 96372; J1885

== ENCOUNTER 2020-05-10 07:37 | Outpatient (CLI) | payer OTHER ==
--- NOTE | 2020-05-10 08:06 | ULT ---
Hepatic ultrasound with duplex evaluation INDICATION: History of hepatitis C abnormal LFTs and alcoholism TECHNIQUE: Grayscale, color Doppler and spectral Doppler images were obtained of the liver, gallbladd er, common bile duct, pancreas, right kidney and spleen. COMPARISON: Prior hepatic ultrasound with duplex evaluation dated August 23, 2013 FINDINGS: Liver: There is cirrhotic morphology of the liver. No focal hepatic lesion is evident. The liver calixto ures 13.2 cm in length. Hepatic vasculature: Left hepatic vein: Appropriate flow. Middle hepatic vein: Appropriate flow. Right hepatic vein: Appropriate flow. Hepatic artery: Hepatopedal flow. Main portal vein: Hepatopedal flow. Right portal vein: Hepatopedal flow. Left portal vein: Hepatopedal flow. Splenic artery: Appropriate flow. Splenic vein: Hepatopedal flow. Aorta: Appropriate flow. IVC: Appropriate flow. Gallbladder: Surgically absent Common bile duct: Stably prominent measuring 1.4 cm. mm. Pancreas: Visualized pancreas appears within normal limits. Right kidney: Visualized right kidney appears within normal limits. Spleen: The spleen measured 11.8 cmcm in length. Small cyst is seen within the spleen measuring 8 mm. IMPRESSION: 1. No focal hepatic lesion. Appropriate hepatopedal flow. 2. Cirrhotic morphology of the liver. No focal hepatic lesion identified. 3. Cholecystectomy. 4. Small splenic cyst.
== END 2020-05-10 07:38 | disposition home or self-care (01) ==
LOC: BICULT 07:37
PROVIDERS: ATTEND Physician Assistant Medical
DX: Z12.11 Encounter for screening for malignant neoplasm of colon (principal); R94.5 Abnormal results of liver function studies; K21.9 Gastro-esophageal reflux disease without esophagitis; K58.1 Irritable bowel syndrome with constipation; D73.4 Cyst of spleen; K74.60 Unspecified cirrhosis of liver; Z86.19 Personal history of other infectious and parasitic diseases; Z90.49 Acquired absence of other specified parts of digestive tract
CPT/HCPCS: 76705

== ENCOUNTER 2020-05-31 01:54 | Emergency (ER) | payer OTHER ==
[2020-05-31 02:20] LABS: #Basophils 0.1 thou/uL (0.0-0.2); #Eosinphils 0.2 thou/uL (0.0-0.7); #Lymphocytes 2.5 thou/uL (1.20-3.40); #Monocytes 0.6 thou/uL (0.11-0.59); #Neutrophils 4.4 thou/uL (1.40-6.50); %Basophils 0.9 % (0.0-1.0); %Eosinophils 2.2 % (0.0-10.0); %Lymphocytes 32.5 % (21.0-51.0); %Monocytes 7.5 % (0.0-10.0); %Neutrophils 56.9 % (42.0-75.0); Hemoglobin 15.4 g/dL (12.0-16.0); Mean Corpuscular HGB CONC 33.2 g/dL (32.0-36.0); Mean Corpuscular Hemoglobin 33.6 pg (27.0-31.0); Mean Platelet Volume 6.8 fL (7.4-10.4); Platelet Count 151 thou/uL (130-400); RBC Distribution Width 12.4 % (11.5-14.5); Red Blood Cell (RBC) Count 4.57 mill/uL (4.20-5.40); White Blood Cell (WBC) Count 7.7 thou/uL (4.8-10.8)
[2020-05-31 02:30] LABS: Bilirubin Negative (Negative); Blood, Urine Negative (Negative); Clarity Clear (Clear); Glucose, Urine (Dipstick) Normal (Negative); Ketone, Urine Negative (Negative); Leukocyte Negative Leu/uL (Negative); Nitrite Negative (Negative); Protein, Urine (Dipstick) Negative (Neg-Trace); Specific Gravity, Urine 1.006 (1.002-1.036); Urobilinogen Normal mg/dL (Less than 2); pH, Urine 7.5 (5.0-9.0)
[2020-05-31 02:30] LABS: PTT 36.6 sec (22.9-36.1); Prothrombin Time 13.7 sec (12.0-14.7)
[2020-05-31 02:31] LABS: Pregnancy Test - Urine (BHCG) Negative (Negative); Pregu Control Background? CLEAR/WHITE (CLR/WHITE); Pregu Control Bar Appear? YES (CONTROL BAR); Specific Gravity 1.006 (1.002-1.036)
[2020-05-31 02:39] LABS: Cocaine Metabolite Screen Not Detected (NotDetected); Medtox Reader # READER 1; Opiate Screen Detected (NotDetected); Phencyclidine (PCP) Not Detected (NotDetected); THC/Cannabinoid Screen Not Detected (NotDetected)
[2020-05-31 02:40] LABS: Amphetamine Not Detected (NotDetected); Barbiturates Screen Not Detected (NotDetected); Benzodiazepine Screen Not Detected (NotDetected); Medtox Control Line Valid? VALID (VALID); Methadone Not Detected (NotDetected); Methamphetamine Not Detected (NotDetected); Oxycodone Screen Not Detected (NotDetected); Tricyclic Screen Not Detected (NotDetected)
[2020-05-31 02:45] LABS: ALT (SGPT) 26 U/L (8-55); AST (SGOT) 27 U/L (5-34); Albumin 4.1 g/dL (3.5-5.0); Alcohol Less than 10 mg/dL (Less than 10); Alkaline Phosphatase 111 U/L (40-110); Anion Gap 13 mmol/L (10-20); BUN (Urea Nitrogen) 16 mg/dL (9.8-20.1); Bilirubin, Total 0.6 mg/dL (0.2-1.2); Calc. Creatinine Clearance 0 mL/min (70-130); Carbon Dioxide 26 mmol/L (22-29); Chloride 109 mmol/L (98-107); Estimated GFR-MDRD 80; Glucose 116 mg/dL (70-105); Potassium 3.7 mmol/L (3.5-5.1); Protein, Total 7.1 g/dL (6.0-8.3); Sodium 144 mmol/L (136-145)
[2020-05-31 02:46] LABS: Alcohol Less than 10 mg/dL (Less than 10); CK (CPK) 106 U/L (29-168); Salicylate Less than 8.0 mg/dL (15.0-30.0)
[2020-05-31] MEDS ORDERED: Ondansetron PF 4 MG/2 ML Vial ONE ×2 (06:29→08:25)
[2020-05-31 06:43] LABS: SARS-CoV-2 NAA Rapid Test DETECTED (NotDetected)
[2020-05-31 16:01] LABS: SARS-CoV-2 MS2 Positive; SARS-CoV-2 N Gene Positive; SARS-CoV-2 S Gene Positive; SARS-CoV-2 by NAA DETECTED (NotDetected); SARS-CoV-2 orf1ab Positive
== END 2020-05-31 14:33 | disposition short-term general hospital (02) ==
LOC: ERS 01:54
DX: U07.1 COVID-19 (principal); T39.1X2A Poisoning by 4-Aminophenol derivatives, intentional self-harm, initial encounter; G40.909 Epilepsy, unspecified, not intractable, without status epilepticus; E11.9 Type 2 diabetes mellitus without complications; J43.9 Emphysema, unspecified; M19.90 Unspecified osteoarthritis, unspecified site; F20.9 Schizophrenia, unspecified; F31.9 Bipolar disorder, unspecified; F17.210 Nicotine dependence, cigarettes, uncomplicated; G47.30 Sleep apnea, unspecified; K74.60 Unspecified cirrhosis of liver; Z79.84 Long term (current) use of oral hypoglycemic drugs; Z79.899 Other long term (current) drug therapy
CPT/HCPCS: 36415; 80053; 80306; 80307; 81003; 81025; 82550; 84443; 85025; 85610; 85730; 87635; 93005; 96374; 96376; J2405; U0002; U0003

== ENCOUNTER 2020-06-16 12:09 | Emergency (ER) | payer OTHER ==
--- NOTE | 2020-06-16 12:42 | RAD ---
XR Forearm Rt 2 View STANDARD HISTORY: Injury, fall, right wrist pain FINDINGS: There is a minimally displaced fracture involving the radial styloid.
--- NOTE | 2020-06-16 12:43 | RAD ---
RIGHT WRIST 3 VIEWS: HISTORY: Right wrist pain, injury FINDINGS: There is a minimally displaced fracture involving the distal radius including the radial styloid, wit h fracture line extending into the articular surface.
--- NOTE | 2020-06-16 12:44 | RAD ---
XR Finger(s) Rt Min 2 View HISTORY: Fall, right thumb pain FINDINGS: No fracture or dislocation is identified.
[2020-06-16] MEDS ORDERED: Ketorolac Tromethamine 30 MG/ML VIAL ONE (12:49)
--- NOTE | 2020-06-16 13:12 | RAD ---
3 VIEWS LEFT ANKLE: Date: 06/16/2020 COMPARISON: None. HISTORY: Fall with ankle pain. FINDINGS: Three views of the left ankle show no evidence of acute fracture or dislocation. Mild diffuse soft ti ssue swelling is seen. Diffuse osteopenia is seen. No degenerative changes are seen. IMPRESSION: No evidence of acute osseous abnormality. POS: [facility]
== END 2020-06-16 13:43 | disposition home or self-care (01) ==
LOC: ERS 12:09
DX: S52.511A Displaced fracture of right radial styloid process, initial encounter for closed fracture (principal); S93.402A Sprain of unspecified ligament of left ankle, initial encounter; E11.9 Type 2 diabetes mellitus without complications; G40.909 Epilepsy, unspecified, not intractable, without status epilepticus; J43.9 Emphysema, unspecified; M19.90 Unspecified osteoarthritis, unspecified site; G47.30 Sleep apnea, unspecified; I50.9 Heart failure, unspecified; F17.210 Nicotine dependence, cigarettes, uncomplicated; Z79.84 Long term (current) use of oral hypoglycemic drugs; Z79.899 Other long term (current) drug therapy; W00.0XXA Fall on same level due to ice and snow, initial encounter
CPT/HCPCS: 29125; 96374; J1885

== ENCOUNTER 2020-07-25 12:33 | Emergency (ER) | payer OTHER ==
[2020-07-25 13:27] LABS: Bilirubin Negative (Negative); Blood, Urine Negative (Negative); Clarity Clear (Clear); Glucose, Urine (Dipstick) Normal (Negative); Ketone, Urine Negative (Negative); Leukocyte Negative Leu/uL (Negative); Nitrite Negative (Negative); Protein, Urine (Dipstick) Negative (Neg-Trace); Specific Gravity, Urine 1.015 (1.002-1.036)
--- NOTE | 2020-07-25 13:59 | CT ---
Head CT without contrast 07/25/2020: COMPARISON: 08/01/2019 HISTORY: Left foot and ankle pain, injury, trauma, pain, hit back of head on wall TECHNIQUE: Axial CT imaging at 5 mm intervals from vertex through skull base without contrast. Bowman l and sagittal reformatted imaging obtained. FINDINGS: The visualized paranasal sinuses and mastoid air cells are well-aerated. There is no displa philly calvarial fracture. No intracranial hemorrhage, midline shift, or mass effect. IMPRESSION: No intracranial hemorrhage or displaced calvarial fracture.
--- NOTE | 2020-07-25 14:15 | RAD ---
3 views of the left ankle: 07/25/2020 COMPARISON: 06/16/2020 HISTORY: Fall, trauma, pain FINDINGS: There is lateral soft tissue swelling. The talar dome and ankle mortise appear intact. Ther e is no displaced fracture or evidence of dislocation seen. The lateral examination demonstrates anterior soft tissue swelling at the left ankle joint with a pro bable ankle joint effusion. There is mild enthesophyte formation at the origin of the plantar aponeurosis. IMPRESSION: Soft tissue injury. No associated fracture or dislocation.
--- NOTE | 2020-07-25 14:15 | RAD ---
XR Foot Lt 3 View STANDARD INDICATION: Foot pain COMPARISON: None. FINDINGS: Bones: There is a mildly comminuted fracture involving the small digit metatarsal head. Joints: Joints spaces appear preserved. Lisfranc alignment: Lisfranc alignment appears within normal limits. Soft tissues: No soft tissue injury demonstrated. No radiographic foreign body demonstrated. IMPRESSION: Comminuted small digit metatarsal head fracture, minimally displaced.
== END 2020-07-25 15:08 | disposition home or self-care (01) ==
LOC: ERS 12:33
DX: S92.351A Displaced fracture of fifth metatarsal bone, right foot, initial encounter for closed fracture (principal); S00.03XA Contusion of scalp, initial encounter; E11.9 Type 2 diabetes mellitus without complications; G40.909 Epilepsy, unspecified, not intractable, without status epilepticus; I50.9 Heart failure, unspecified; J43.9 Emphysema, unspecified; G47.30 Sleep apnea, unspecified; F17.210 Nicotine dependence, cigarettes, uncomplicated; Z79.899 Other long term (current) drug therapy; W01.10XA Fall on same level from slipping, tripping and stumbling with subsequent striking against unspecified object, initial encounter
CPT/HCPCS: 70450; 81003

== ENCOUNTER 2020-09-04 09:27 | Outpatient (CLI) | payer OTHER | END 2020-09-04 09:28 | disposition home or self-care (01) | LOC: RAD-FRANK 09:27 | PROVIDERS: ATTEND Nurse Practitioner Family | DX: R05 Cough (principal) | CPT/HCPCS: 71046 ==

== ENCOUNTER 2020-12-18 15:44 | Emergency (ER) | payer OTHER ==
[2020-12-18 17:38] LABS: Hemoglobin 15.2 g/dL (12.0-16.0); Mean Corpuscular HGB CONC 31.8 g/dL (32.0-36.0); Mean Corpuscular Hemoglobin 32.3 pg (27.0-31.0); Mean Platelet Volume 6.9 fL (7.4-10.4); Platelet Count 141 thou/uL (130-400); RBC Distribution Width 12.8 % (11.5-14.5); Red Blood Cell (RBC) Count 4.72 mill/uL (4.20-5.40); White Blood Cell (WBC) Count 6.1 thou/uL (4.8-10.8)
[2020-12-18 17:53] LABS: ALT (SGPT) 20 U/L (8-55); AST (SGOT) 25 U/L (5-34); Albumin 3.6 g/dL (3.5-5.0); Alkaline Phosphatase 99 U/L (40-110); Anion Gap 16 mmol/L (10-20); BUN (Urea Nitrogen) 11 mg/dL (9.8-20.1); Bilirubin, Total 0.4 mg/dL (0.2-1.2); Calc. Creatinine Clearance 0 mL/min (70-130); Calcium 9.3 mg/dL (7.8-10.44); Carbon Dioxide 23 mmol/L (22-29); Chloride 109 mmol/L (98-107); Globulin 2.9 g/dL (2.4-3.5); Glucose 99 mg/dL (70-105); Potassium 4.8 mmol/L (3.5-5.1); Protein, Total 6.5 g/dL (6.0-8.3); Sodium 143 mmol/L (136-145)
[2020-12-18 18:00] LABS: Eosinophils 3 % (0-10); Lymphocytes 33 % (21-51); MDiff Complete? YES; Monocytes 3 % (0-10); Neutrophil 60 % (42-75); Platelet Morphology Comment Appears Adequate; RBC Morphology Normal; Reactive Lymphocytes 1 % (0-10)
[2020-12-18 18:33] LABS: Bilirubin Negative (Negative); Blood, Urine Negative (Negative); Clarity Clear (Clear); Glucose, Urine (Dipstick) Normal (Negative); Ketone, Urine Negative (Negative); Leukocyte Negative Leu/uL (Negative); Nitrite Negative (Negative); Protein, Urine (Dipstick) Negative (Neg-Trace); Specific Gravity, Urine 1.012 (1.002-1.036); Urobilinogen Normal mg/dL (Less than 2); pH, Urine 6.5 (5.0-9.0)
[2020-12-18] MEDS ORDERED: HYDROcodone/Acetaminophen 5/325 mg Tablet ONE (19:35)
== END 2020-12-18 19:50 | disposition home or self-care (01) ==
LOC: ERS 15:44
DX: M25.552 Pain in left hip (principal); E11.9 Type 2 diabetes mellitus without complications; J43.9 Emphysema, unspecified; G40.909 Epilepsy, unspecified, not intractable, without status epilepticus; G47.30 Sleep apnea, unspecified; M19.90 Unspecified osteoarthritis, unspecified site; F17.210 Nicotine dependence, cigarettes, uncomplicated; Z79.899 Other long term (current) drug therapy; W19.XXXA Unspecified fall, initial encounter
CPT/HCPCS: 36415; 72170; 80053; 81003; 85025; 99284

== ENCOUNTER 2021-02-12 12:42 | Outpatient (CLI) | payer OTHER | END 2021-02-12 12:43 | disposition home or self-care (01) | LOC: SCSMRI 12:42 | PROVIDERS: ATTEND Nurse Practitioner Acute Care | DX: M54.42 Lumbago with sciatica, left side (principal); M47.816 Spondylosis without myelopathy or radiculopathy, lumbar region; M47.22 Other spondylosis with radiculopathy, cervical region; M48.061 Spinal stenosis, lumbar region without neurogenic claudication | CPT/HCPCS: 72141; 72148 ==

== ENCOUNTER 2021-05-21 18:28 | Emergency (ER) | payer OTHER ==
[2021-05-21] MEDS ORDERED: Ketorolac Tromethamine 30 MG/ML VIAL ONE (19:51)
[2021-05-21] MEDS ORDERED: Morphine 4 MG/ML VIAL ONE (20:17)
[2021-05-21 20:20] LABS: #Eosinphils 0.2 thou/uL (0.0-0.7); #Lymphocytes 2.2 thou/uL (1.20-3.40); #Monocytes 0.5 thou/uL (0.11-0.59); #Neutrophils 4.4 thou/uL (1.40-6.50); %Basophils 0.5 % (0.0-1.0); %Eosinophils 2.1 % (0.0-10.0); %Lymphocytes 29.5 % (21.0-51.0); %Monocytes 7.3 % (0.0-10.0); %Neutrophils 60.5 % (42.0-75.0); Hemoglobin 15.3 g/dL (12.0-16.0); Mean Corpuscular HGB CONC 33.9 g/dL (32.0-36.0); Mean Corpuscular Hemoglobin 34.9 pg (27.0-31.0); Mean Platelet Volume 6.7 fL (7.4-10.4); Platelet Count 123 thou/uL (130-400); RBC Distribution Width 12.1 % (11.5-14.5); Red Blood Cell (RBC) Count 4.39 mill/uL (4.20-5.40); White Blood Cell (WBC) Count 7.3 thou/uL (4.8-10.8)
[2021-05-21 20:44] LABS: ALT (SGPT) 22 U/L (8-55); AST (SGOT) 35 U/L (5-34); Albumin 3.6 g/dL (3.5-5.0); Alkaline Phosphatase 102 U/L (40-110); Anion Gap 9 mmol/L (10-20); BUN (Urea Nitrogen) 11 mg/dL (9.8-20.1); Bilirubin, Total 0.6 mg/dL (0.2-1.2); Calc. Creatinine Clearance 0 mL/min (70-130); Calcium 9.4 mg/dL (7.8-10.44); Carbon Dioxide 28 mmol/L (22-29); Chloride 110 mmol/L (98-107); Globulin 2.9 g/dL (2.4-3.5); Glucose 101 mg/dL (70-105); Potassium 4.2 mmol/L (3.5-5.1); Protein, Total 6.5 g/dL (6.0-8.3); Sodium 143 mmol/L (136-145)
== END 2021-05-21 22:42 | disposition home or self-care (01) ==
LOC: ERS 18:28
DX: T81.33XA Disruption of traumatic injury wound repair, initial encounter (principal); Z96.642 Presence of left artificial hip joint; W18.30XA Fall on same level, unspecified, initial encounter; G40.909 Epilepsy, unspecified, not intractable, without status epilepticus; E11.9 Type 2 diabetes mellitus without complications; I50.9 Heart failure, unspecified; G47.30 Sleep apnea, unspecified; F17.210 Nicotine dependence, cigarettes, uncomplicated; Z79.899 Other long term (current) drug therapy
CPT/HCPCS: 36415; 72192; 80053; 85025; 96372; 96374; J1885; J2270

== ENCOUNTER 2021-06-07 18:26 | Emergency (ER) | payer OTHER ==
[2021-06-07] MEDS ORDERED: Morphine 4 MG/ML VIAL ONE (18:46)
[2021-06-07] MEDS ORDERED: Ondansetron PF 4 MG/2 ML Vial ONE (18:46)
[2021-06-07 19:10] LABS: #Eosinphils 0.1 thou/uL (0.0-0.7); #Lymphocytes 1.1 thou/uL (1.20-3.40); #Monocytes 0.3 thou/uL (0.11-0.59); #Neutrophils 3.7 thou/uL (1.40-6.50); %Basophils 0.3 % (0.0-1.0); %Eosinophils 1.7 % (0.0-10.0); %Lymphocytes 20.7 % (21.0-51.0); %Monocytes 5.3 % (0.0-10.0); Hemoglobin 14.4 g/dL (12.0-16.0); Mean Corpuscular HGB CONC 33.9 g/dL (32.0-36.0); Mean Platelet Volume 6.8 fL (7.4-10.4); Platelet Count 126 thou/uL (130-400); RBC Distribution Width 12.2 % (11.5-14.5); Red Blood Cell (RBC) Count 4.11 mill/uL (4.20-5.40); White Blood Cell (WBC) Count 5.2 thou/uL (4.8-10.8)
[2021-06-07 19:25] LABS: ALT (SGPT) 17 U/L (8-55); AST (SGOT) 25 U/L (5-34); Albumin 3.4 g/dL (3.5-5.0); Alkaline Phosphatase 102 U/L (40-110); Anion Gap 10 mmol/L (10-20); BUN (Urea Nitrogen) 8 mg/dL (9.8-20.1); Bilirubin, Total 0.4 mg/dL (0.2-1.2); Calc. Creatinine Clearance 0 mL/min (70-130); Calcium 9.4 mg/dL (7.8-10.44); Carbon Dioxide 30 mmol/L (22-29); Chloride 104 mmol/L (98-107); Globulin 2.8 g/dL (2.4-3.5); Glucose 121 mg/dL (70-105); Potassium 4.3 mmol/L (3.5-5.1); Protein, Total 6.2 g/dL (6.0-8.3); Sodium 140 mmol/L (136-145)
== END 2021-06-07 22:43 | disposition home or self-care (01) ==
LOC: ERS 18:26
DX: J44.1 Chronic obstructive pulmonary disease with (acute) exacerbation (principal); E11.9 Type 2 diabetes mellitus without complications; I50.9 Heart failure, unspecified; F17.210 Nicotine dependence, cigarettes, uncomplicated
CPT/HCPCS: 36415; 71045; 80053; 85025; 93005; 96374; 96375; J2270; J2405

== ENCOUNTER 2021-08-22 10:36 | Outpatient (CLI) | payer OTHER ==
[2021-08-22 12:04] LABS: #Eosinphils 0.1 10x3/uL (0.0-0.5); #Monocytes 0.4 10x3/uL (0.0-1.1); #Neutrophils 2.7 10x3/uL (1.5-8.4); %Basophils 0.6 % (0.0-2.0); %Eosinophils 2.6 % (0.0-6.0); %Lymphocytes 33.2 % (18.0-47.0); %Monocytes 8.7 % (0.0-10.0); %Neutrophils 54.3 % (40.0-75.0); Hemoglobin 14.1 g/dL (12.0-15.5); Mean Corpuscular HGB CONC 31.8 g/dL (32.0-36.0); Mean Corpuscular Hemoglobin 32.3 pg (27.0-33.0); Mean Corpuscular Volume 101.8 fl (81.6-98.3); Mean Platelet Volume 9.5 fl (7.4-10.4); Platelet Count 105 10x3/uL (150-450); RBC Distribution Width 13.5 % (11.5-14.5); Red Blood Cell (RBC) Count 4.36 10x6/uL (3.90-5.03)
[2021-08-22 12:27] LABS: Anion Gap 12 mmol/L (10-20); BUN (Urea Nitrogen) 12 mg/dL (9.8-20.1); Calc. Creatinine Clearance 0 mL/min (70-130); Calcium 9.2 mg/dL (7.8-10.44); Carbon Dioxide 30 mmol/L (22-29); Chloride 104 mmol/L (98-107); Glucose 124 mg/dL (70-105); Potassium 4.1 mmol/L (3.5-5.1); Sodium 142 mmol/L (136-145)
[2021-08-23 00:01] LABS: SARS-CoV-2 PCR by NAA Not Detected (NotDetected)
== END 2021-08-22 10:37 | disposition home or self-care (01) ==
LOC: LABBT 10:36
PROVIDERS: ATTEND Orthopaedic Surgery
DX: Z01.818 Encounter for other preprocedural examination (principal); T84.011A Broken internal left hip prosthesis, initial encounter; Z20.822 Contact with and (suspected) exposure to COVID-19
CPT/HCPCS: 80048; 85025; 93005; 93010; U0003; U0005

== ENCOUNTER 2021-08-25 06:33 | Inpatient (IN) | payer OTHER ==
[2021-08-20 14:50] VITALS: BMI 40.7
[2021-08-25] MEDS ORDERED: Tranexamic Acid 1,000 MG/10 ML VIAL ONE (07:21)
[2021-08-25] MEDS ORDERED: Sodium Chloride 0.9% 100 ML ONE (07:21)
[2021-08-25] MEDS ORDERED: Vancomycin HCl 1.5 GM in Sodium Chloride 0.9% 250 ML 300 ML IVPB SCH (07:30)
[2021-08-25] MEDS ORDERED: Midazolam HCl 2 mg/2 ml Vial ONE (07:58)
[2021-08-25] MEDS ORDERED: Fentanyl 250 MCG/5 ML VIAL ONE ×3 (08:24→11:21)
[2021-08-25] MEDS ORDERED: ceFAZolin 2 GM/DEX 5% 100 ML BAG ONE (08:56)
[2021-08-25] MEDS ORDERED: HYDROcodone/Acetaminophen 10/325 mg Tablet PO PRN ×2 (09:09)
[2021-08-25] MEDS ORDERED: Acetaminophen 325 MG TAB PO PRN (09:09)
[2021-08-25] MEDS ORDERED: diphenhydrAMINE 25 MG CAP PO PRN ×2 (09:09→13:00)
[2021-08-25] MEDS ORDERED: Ondansetron PF 4 MG/2 ML Vial IVP PRN ×2 (09:09→13:00)
[2021-08-25] MEDS ORDERED: Fentanyl 100 MCG/2 ML VIAL SLOW IVP PRN ×2 (09:09)
[2021-08-25] MEDS ORDERED: Zolpidem Tartrate 5 MG TAB PO PRN ×2 (09:09→13:00)
[2021-08-25] MEDS ORDERED: Promethazine HCl 25 MG/ML VIAL IM PRN ×3 (09:09→13:00)
[2021-08-25] MEDS ORDERED: Rocuronium Bromide 10 MG/ML (10ML VIAL) ONE (09:10)
[2021-08-25] MEDS ORDERED: Ketorolac Tromethamine 30 MG/ML VIAL ONE (09:10)
[2021-08-25] MEDS ORDERED: PHENYLEPHRINE-NS 100 MCG/ML 10 ML SYRINGE ONE (09:10)
[2021-08-25] MEDS ORDERED: Bupivacaine HCl 0.5%/Epinephrine 1:200,000/PF 30 ml Vial ONE (09:10)
[2021-08-25] MEDS ORDERED: PROPOFOL 200 MG/20 ML VIAL ONE (09:10)
[2021-08-25] MEDS ORDERED: Ondansetron PF 4 MG/2 ML Vial ONE (09:10)
[2021-08-25] MEDS ORDERED: GLYCOPYRROLATE/PF 0.2 MG/ML VIAL ONE (09:10)
[2021-08-25] MEDS ORDERED: Lidocaine 1% PF 5 ML VIAL ONE (09:10)
[2021-08-25] MEDS ORDERED: Dexamethasone 20 MG/5 ML VIAL ONE (09:10)
[2021-08-25] MEDS ORDERED: ALBUTEROL 5 MG/ML NEB PRN (09:11)
[2021-08-25] MEDS ORDERED: Ondansetron ODT 4 MG TAB PO PRN ×2 (09:11→09:37)
[2021-08-25] MEDS ORDERED: Albuterol Sulfate 2.5 mg/3 ml Neb NEB PRN (09:46)
[2021-08-25] MEDS ORDERED: HYDROmorphone 2 MG/ML VIAL SLOW IVP PRN (09:55)
[2021-08-25] MEDS ORDERED: Ondansetron HCl/PF 4 MG/2 ML Vial IVP PRN (09:55)
[2021-08-25] MEDS ORDERED: Promethazine HCl 25 MG/ML VIAL IVPB PRN (09:55)
[2021-08-25] MEDS ORDERED: Meperidine HCl/PF 25 MG/ML VIAL SLOW IVP PRN (09:55)
[2021-08-25] MEDS ORDERED: Morphine 4 MG/ML VIAL ONE (12:10)
[2021-08-25] MEDS ORDERED: HYDROmorphone 2 MG/ML VIAL ONE (12:55)
[2021-08-25] MEDS ORDERED: Naloxone HCl 0.4 mg/ml Vial IV PRN (13:00)
[2021-08-25] MEDS ORDERED: Fentanyl CADD 100 ML IVPB SCH (13:00)
[2021-08-25] MEDS ORDERED: diphenhydrAMINE 50 MG/ML VIAL IM/IV PRN (13:00)
[2021-08-25] MEDS ORDERED: Ketorolac Tromethamine 30 MG/ML VIAL IM SCH (14:00)
[2021-08-25] MEDS ORDERED: Non-Formulary Item 1 EACH (Tizanidine Hcl [Tizanidine Hcl] 4 MG Capsule) PO SCH (15:00)
[2021-08-25] MEDS: Sodium Chloride 0.9% 1,000 ML IV SCH ×3 (15:19→19:23)
[2021-08-25] MEDS: tiZANidine HCl 4 MG TAB PO SCH ×2 (15:23→21:56)
[2021-08-25] MEDS: Ipratropium Bromide 2.5 ml Neb NEB SCH ×2 (16:16→19:26)
[2021-08-25] MEDS ORDERED: ceFAZolin 2 GM/Dextrose 50 ML 2 GM in Premix Bag 1 BAG IVPB SCH (17:00)
[2021-08-25] MEDS: CEFAZOLIN 2 GM, Admixture Fee 1 EACH in Sodium Chloride 0.9% 100 ML IVPB SCH (17:57)
[2021-08-25] MEDS: Gabapentin 300 MG CAP PO SCH (19:16)
[2021-08-25] MEDS: Acetaminophen 500 MG TAB PO SCH ×2 (19:22→23:40)
[2021-08-25] MEDS ORDERED: Bisacodyl 5 MG TAB PO PRN (19:43)
[2021-08-25] MEDS ORDERED: Guaifenesin DM 100-10/5 ML UDCUP PO PRN (19:43)
[2021-08-25] MEDS ORDERED: hydrALAZINE 20 MG/ML VIAL SLOW IVP PRN (19:51)
[2021-08-25] MEDS ORDERED: Sodium Chloride 0.9% 1,000 ML IV SCH (19:52)
[2021-08-25] MEDS ORDERED: Dextrose 50% Abboject 50 ML SYRINGE SLOW IVP PRN (20:21)
[2021-08-25] MEDS ORDERED: HumaLOG 300 UNITS/3 ML VIAL SC PRN ×2 (20:21)
[2021-08-25] MEDS ORDERED: Dextrose 5% in Water 1,000 ML IV PRN (20:21)
[2021-08-25] MEDS ORDERED: Zonisamide 100 MG CAP PO SCH (21:00)
[2021-08-25] MEDS ORDERED: traZODone HCl 50 MG TAB PO SCH (21:00)
[2021-08-25] MEDS ORDERED: Non-Formulary Item 1 EACH (Lurasidone 20 MG Tab) PO SCH (21:00)
[2021-08-25] MEDS ORDERED: ALPRAZolam 0.5 MG TAB PO SCH (21:00)
[2021-08-25] MEDS ORDERED: Pravastatin Sodium 40 MG TAB PO SCH (21:00)
[2021-08-25] MEDS ORDERED: Pantoprazole 40 MG VIAL IVP SCH (21:30)
[2021-08-25] MEDS: ALPRAZolam 0.5 MG TAB PO SCH (21:55)
[2021-08-25] MEDS: Nicotine 21 MG PATCH TD SCH (21:55)
[2021-08-25] MEDS: Aspirin 81 mg Enteric Coated Tablet PO SCH (21:55)
[2021-08-25] MEDS: Atorvastatin Calcium 10 MG TAB PO SCH (21:56)
[2021-08-25] MEDS: Carvedilol 25 MG TAB PO SCH (21:56)
[2021-08-25] MEDS: traZODone HCl 50 MG TAB PO SCH (21:56)
[2021-08-25] MEDS: Sulfameth/Trimethoprim DS 800-160mg TAB PO SCH (21:57)
[2021-08-25] MEDS: Ferrous Gluconate 324 MG TAB PO SCH (21:57)
[2021-08-25] MEDS: Senokot S 8.6-50 MG TAB PO SCH (21:57)
[2021-08-25] MEDS: Zonisamide 100 MG CAP PO SCH (22:04)
[2021-08-25] MEDS: Lurasidone 20 MG TABLET PO SCH (23:40)
[2021-08-26] MEDS: CEFAZOLIN 2 GM, Admixture Fee 1 EACH in Sodium Chloride 0.9% 100 ML IVPB SCH (00:24)
[2021-08-26] MEDS: Ipratropium Bromide 2.5 ml Neb NEB SCH ×4 (00:36→19:22)
[2021-08-26 05:38] LABS: Hemoglobin 12.1 g/dL (12.0-16.0); Mean Corpuscular HGB CONC 32.3 g/dL (32.0-36.0); Mean Corpuscular Hemoglobin 33.9 pg (27.0-31.0); Mean Platelet Volume 7.1 fL (7.4-10.4); Platelet Count 114 thou/uL (130-400); RBC Distribution Width 12.9 % (11.5-14.5); Red Blood Cell (RBC) Count 3.55 mill/uL (4.20-5.40); White Blood Cell (WBC) Count 9.5 thou/uL (4.8-10.8)
[2021-08-26 05:49] LABS: #Lymphocytes 1.2 thou/uL (1.20-3.40); #Monocytes 0.8 thou/uL (0.11-0.59); #Neutrophils 7.7 thou/uL (1.40-6.50); %Basophils 0.2 % (0.0-1.0); %Eosinophils 0.1 % (0.0-10.0); %Lymphocytes 12.3 % (21.0-51.0); %Monocytes 8.3 % (0.0-10.0); %Neutrophils 79.1 % (42.0-75.0); Hemoglobin 12.1 g/dL (12.0-16.0); Mean Corpuscular HGB CONC 31.9 g/dL (32.0-36.0); Mean Platelet Volume 7.2 fL (7.4-10.4); Platelet Count 129 thou/uL (130-400); RBC Distribution Width 12.9 % (11.5-14.5); Red Blood Cell (RBC) Count 3.56 mill/uL (4.20-5.40); White Blood Cell (WBC) Count 9.7 thou/uL (4.8-10.8)
[2021-08-26] MEDS: Acetaminophen 500 MG TAB PO SCH ×3 (05:58→18:16)
[2021-08-26 06:15] LABS: ALT (SGPT) 12 U/L (8-55); AST (SGOT) 24 U/L (5-34); Alkaline Phosphatase 63 U/L (40-110); Anion Gap 10 mmol/L (10-20); BUN (Urea Nitrogen) 8 mg/dL (9.8-20.1); Bilirubin, Total 0.6 mg/dL (0.2-1.2); Calc. Creatinine Clearance 166 mL/min (70-130); Calcium 8.5 mg/dL (7.8-10.44); Carbon Dioxide 26 mmol/L (22-29); Chloride 108 mmol/L (98-107); Globulin 2.3 g/dL (2.4-3.5); Glucose 102 mg/dL (70-105); Potassium 4.1 mmol/L (3.5-5.1); Protein, Total 5.3 g/dL (6.0-8.3); Sodium 140 mmol/L (136-145)
[2021-08-26 06:19] LABS: Hemoglobin A1c 5.1 % (4.0-6.0)
[2021-08-26] MEDS ORDERED: Non-Formulary Item 1 EACH (Esomeprazole Magnesium [Nexium] 40 MG Cap) PO SCH (08:00)
[2021-08-26] MEDS ORDERED: Non-Formulary Item 1 EACH (Venlafaxine Hcl [Venlafaxine Hcl Er] 150 MG Tab.Er.24) PO SCH (09:00)
[2021-08-26] MEDS ORDERED: Non-Formulary Item 1 EACH (Oxybutynin Chloride [Ditropan Xl] 10 MG Tab.Er.24) PO SCH (09:00)
[2021-08-26] MEDS ORDERED: Non-Formulary Item 1 EACH (Potassium Chloride [Potassium Chloride] 10 MEQ Capsule.Er) PO SCH (09:00)
[2021-08-26] MEDS ORDERED: Non-Formulary Item 1 EACH (Tiotropium [Spiriva Handihaler] 18 MCG Box) INH SCH (09:00)
[2021-08-26] MEDS ORDERED: Non-Formulary Item 1 EACH (Linagliptin [Tradjenta] 5 MG Tablet) PO SCH (09:00)
[2021-08-26] MEDS: Multivitamin W/ Minerals 1 TAB PO SCH (09:57)
[2021-08-26] MEDS: ALPRAZolam 0.5 MG TAB PO SCH ×2 (09:57→21:11)
[2021-08-26] MEDS: Gabapentin 300 MG CAP PO SCH ×2 (09:57→18:15)
[2021-08-26] MEDS: Sulfameth/Trimethoprim DS 800-160mg TAB PO SCH ×2 (09:57→21:11)
[2021-08-26] MEDS: Aspirin 81 mg Enteric Coated Tablet PO SCH ×2 (09:57→21:11)
[2021-08-26] MEDS: Carvedilol 25 MG TAB PO SCH ×2 (09:57→23:02)
[2021-08-26] MEDS: Oxybutynin ER 5 MG TAB PO SCH (09:58)
[2021-08-26] MEDS: Ferrous Gluconate 324 MG TAB PO SCH ×2 (09:58→21:11)
[2021-08-26] MEDS: Furosemide 40 MG TAB PO SCH (09:58)
[2021-08-26] MEDS: Meloxicam 15 MG TAB PO SCH (09:59)
[2021-08-26] MEDS: Senokot S 8.6-50 MG TAB PO SCH ×2 (09:59→21:10)
[2021-08-26] MEDS: tiZANidine HCl 4 MG TAB PO SCH ×3 (09:59→23:02)
[2021-08-26] MEDS: Pantoprazole 40 MG VIAL IVP SCH (10:06)
[2021-08-26] MEDS: Venlafaxine HCl XR 150 MG CAP PO SCH (10:12)
[2021-08-26] MEDS: Trospium 20 MG TAB PO SCH ×2 (12:33→21:11)
[2021-08-26] MEDS: Alogliptin 25 MG TAB PO SCH (12:34)
[2021-08-26] MEDS: Potassium Chloride 10 MEQ TAB PO SCH (18:15)
[2021-08-26] MEDS: Atorvastatin Calcium 10 MG TAB PO SCH (21:11)
[2021-08-26] MEDS: Nicotine 21 MG PATCH TD SCH (21:11)
[2021-08-26] MEDS: Heparin 5,000 UNITS/ML VIAL SC SCH (21:11)
[2021-08-26] MEDS: traZODone HCl 50 MG TAB PO SCH (21:11)
[2021-08-26] MEDS: Lurasidone 20 MG TABLET PO SCH (21:11)
[2021-08-26] MEDS: Zonisamide 100 MG CAP PO SCH (21:12)
[2021-08-27] MEDS: Ipratropium Bromide 2.5 ml Neb NEB SCH ×3 (00:36→14:25)
[2021-08-27] MEDS: Acetaminophen 500 MG TAB PO SCH ×3 (01:09→15:20)
[2021-08-27 05:52] LABS: #Eosinphils 0.1 thou/uL (0.0-0.7); #Lymphocytes 2.1 thou/uL (1.20-3.40); #Monocytes 0.5 thou/uL (0.11-0.59); %Basophils 0.2 % (0.0-1.0); %Eosinophils 1.6 % (0.0-10.0); %Lymphocytes 26.7 % (21.0-51.0); %Monocytes 6.8 % (0.0-10.0); %Neutrophils 64.7 % (42.0-75.0); Hemoglobin 11.5 g/dL (12.0-16.0); Mean Corpuscular HGB CONC 31.4 g/dL (32.0-36.0); Mean Corpuscular Hemoglobin 33.7 pg (27.0-31.0); Platelet Count 94 thou/uL (130-400); RBC Distribution Width 13.1 % (11.5-14.5); Red Blood Cell (RBC) Count 3.41 mill/uL (4.20-5.40); White Blood Cell (WBC) Count 7.7 thou/uL (4.8-10.8)
[2021-08-27 05:55] LABS: Anion Gap 12 mmol/L (10-20); BUN (Urea Nitrogen) 10 mg/dL (9.8-20.1); Calc. Creatinine Clearance 163 mL/min (70-130); Calcium 8.1 mg/dL (7.8-10.44); Carbon Dioxide 20 mmol/L (22-29); Chloride 110 mmol/L (98-107); Glucose 87 mg/dL (70-105); Potassium 3.7 mmol/L (3.5-5.1); Sodium 138 mmol/L (136-145)
[2021-08-27 06:28] LABS: Hypochromia SLIGHT = 6-15 cells (100X) (0-5/hpf); Lymphocytes 20 % (21-51); MDiff Complete? YES; Macrocytosis SLIGHT = 6-15 cells (100X) (0-5/hpf); Monocytes 5 % (0-10); Neutrophil 73 % (42-75); Platelet Morphology Comment Appears Decreased; Reactive Lymphocytes 1 % (0-10)
[2021-08-27] MEDS: Ferrous Gluconate 324 MG TAB PO SCH (08:39)
[2021-08-27] MEDS: Gabapentin 300 MG CAP PO SCH ×2 (08:40→17:48)
[2021-08-27] MEDS: Carvedilol 25 MG TAB PO SCH (08:40)
[2021-08-27] MEDS: Multivitamin W/ Minerals 1 TAB PO SCH (08:41)
[2021-08-27] MEDS: Alogliptin 25 MG TAB PO SCH (08:41)
[2021-08-27] MEDS: Aspirin 81 mg Enteric Coated Tablet PO SCH (08:41)
[2021-08-27] MEDS: Senokot S 8.6-50 MG TAB PO SCH (08:41)
[2021-08-27] MEDS: Meloxicam 15 MG TAB PO SCH (08:42)
[2021-08-27] MEDS: Potassium Chloride 10 MEQ TAB PO SCH (08:43)
[2021-08-27] MEDS: ALPRAZolam 0.5 MG TAB PO SCH (08:43)
[2021-08-27] MEDS: tiZANidine HCl 4 MG TAB PO SCH ×2 (08:44→15:21)
[2021-08-27] MEDS: Venlafaxine HCl XR 150 MG CAP PO SCH (08:44)
[2021-08-27] MEDS: Trospium 20 MG TAB PO SCH (08:44)
[2021-08-27] MEDS: Sulfameth/Trimethoprim DS 800-160mg TAB PO SCH (08:44)
[2021-08-27] MEDS: Furosemide 40 MG TAB PO SCH (08:44)
[2021-08-27] MEDS: Heparin 5,000 UNITS/ML VIAL SC SCH (08:45)
[2021-08-27] MEDS: Pantoprazole 40 MG VIAL IVP SCH (08:46)
[2021-08-27] MEDS ORDERED: HYDROcodone/Acetaminophen 10/325 mg Tablet PO PRN (10:32)
[2021-08-27] MEDS ORDERED: HYDROcodone/Acetaminophen 10/325 mg Tablet PO SCH (10:45)
[2021-08-27] MEDS: Oxybutynin ER 5 MG TAB PO SCH (10:50)
[2021-08-27 17:57] VITALS: BP 109/69; TEMP 98.4
== END 2021-08-27 19:00 | DRG 468 ==
LOC: SURG A 06:33 → EDSTATUS 10:15 → SURG A 15:13
PROVIDERS: ADMIT Orthopaedic Surgery; ATTEND Family Medicine
PROC: 0SRB0JZ Replacement of Left Hip Joint with Synthetic Substitute, Open Approach (ICD-10-PCS; principal; 2021-08-25)
PROC: 0SPB0JZ Removal of Synthetic Substitute from Left Hip Joint, Open Approach (ICD-10-PCS; 2021-08-25)
DX: T84.011A Broken internal left hip prosthesis, initial encounter (principal); Z20.822 Contact with and (suspected) exposure to COVID-19; Y83.8 Other surgical procedures as the cause of abnormal reaction of the patient, or of later complication, without mention of misadventure at the time of the procedure; G43.909 Migraine, unspecified, not intractable, without status migrainosus; F31.9 Bipolar disorder, unspecified; F20.9 Schizophrenia, unspecified; E78.5 Hyperlipidemia, unspecified; I11.0 Hypertensive heart disease with heart failure; I50.9 Heart failure, unspecified; G47.33 Obstructive sleep apnea (adult) (pediatric); B18.2 Chronic viral hepatitis C; K74.60 Unspecified cirrhosis of liver; E11.8 Type 2 diabetes mellitus with unspecified complications; F17.210 Nicotine dependence, cigarettes, uncomplicated; J43.9 Emphysema, unspecified; Z90.710 Acquired absence of both cervix and uterus; Z79.899 Other long term (current) drug therapy; Z79.51 Long term (current) use of inhaled steroids; Z88.5 Allergy status to narcotic agent
CPT/HCPCS: 36415; 36416; 80048; 80053; 83036; 85025; 85027; 87070; 87205; 88305; 88331; 94640; C1713; C1776; C9113; J0690; J1100; J1170; J1644; J1885; J2250; J2270; J2405; J2704; J3010; J3490; J7050; J7620

== ENCOUNTER 2021-12-23 12:48 | Outpatient (CLI) | payer OTHER | END 2021-12-23 12:49 | disposition home or self-care (01) | LOC: CT 12:48 | PROVIDERS: ATTEND Orthopaedic Surgery | DX: M12.812 Other specific arthropathies, not elsewhere classified, left shoulder (principal); M19.012 Primary osteoarthritis, left shoulder ==

== ENCOUNTER 2022-01-22 10:56 | Outpatient (CLI) | payer OTHER | END 2022-01-22 10:57 | disposition home or self-care (01) | LOC: RAD-FRANK 10:56 | PROVIDERS: ATTEND Nurse Practitioner Family | DX: M89.8X2 Other specified disorders of bone, upper arm (principal) ==

== ENCOUNTER 2022-01-29 09:28 | Emergency (ER) | payer OTHER ==
[2022-01-29 10:12] LABS: #Basophils 0.1 thou/uL (0.0-0.2); #Eosinphils 0.1 thou/uL (0.0-0.7); #Lymphocytes 1.2 thou/uL (1.20-3.40); #Monocytes 0.4 thou/uL (0.11-0.59); #Neutrophils 2.8 thou/uL (1.40-6.50); %Basophils 1.1 % (0.0-1.0); %Eosinophils 1.9 % (0.0-10.0); %Lymphocytes 25.9 % (21.0-51.0); %Monocytes 8.1 % (0.0-10.0); Mean Corpuscular HGB CONC 32.1 g/dL (32.0-36.0); Mean Corpuscular Hemoglobin 33.1 pg (27.0-31.0); Mean Platelet Volume 7.4 fL (7.4-10.4); Platelet Count 101 thou/uL (130-400); RBC Distribution Width 12.9 % (11.5-14.5); Red Blood Cell (RBC) Count 4.22 mill/uL (4.20-5.40); White Blood Cell (WBC) Count 4.5 thou/uL (4.8-10.8)
[2022-01-29 10:31] LABS: ALT (SGPT) 13 U/L (8-55); AST (SGOT) 33 U/L (5-34); Albumin 3.5 g/dL (3.5-5.0); Alkaline Phosphatase 109 U/L (40-110); Anion Gap 12 mmol/L (10-20); BUN (Urea Nitrogen) 13 mg/dL (9.8-20.1); Bilirubin, Total 0.7 mg/dL (0.2-1.2); Calc. Creatinine Clearance 0 mL/min (70-130); Calcium 9.3 mg/dL (7.8-10.44); Carbon Dioxide 26 mmol/L (22-29); Chloride 106 mmol/L (98-107); Estimated GFR 74; Globulin 2.8 g/dL (2.4-3.5); Glucose 96 mg/dL (70-105); Potassium 3.7 mmol/L (3.5-5.1); Protein, Total 6.3 g/dL (6.0-8.3); Sodium 140 mmol/L (136-145)
[2022-01-29 11:36] LABS: Bilirubin Negative (Negative); Blood, Urine Negative (Negative); Clarity Clear (Clear); Glucose, Urine (Dipstick) Normal (Negative); Ketone, Urine Negative (Negative); Leukocyte Negative Leu/uL (Negative); Nitrite Negative (Negative); Protein, Urine (Dipstick) 10 mg/dL (Neg-Trace); Specific Gravity, Urine 1.023 (1.002-1.036)
[2022-01-29] MEDS ORDERED: Ketorolac Tromethamine 30 MG/ML VIAL ONE (12:40)
== END 2022-01-29 13:05 | disposition home or self-care (01) ==
LOC: ERS 09:28
DX: S82.831A Other fracture of upper and lower end of right fibula, initial encounter for closed fracture (principal); E11.9 Type 2 diabetes mellitus without complications; J43.9 Emphysema, unspecified; G47.33 Obstructive sleep apnea (adult) (pediatric); I50.9 Heart failure, unspecified; Z87.891 Personal history of nicotine dependence; Z79.899 Other long term (current) drug therapy; W18.30XA Fall on same level, unspecified, initial encounter
CPT/HCPCS: 27781; 51701; 80053; 81003; 84484; 85025; 93005; 96372; J1885

== ENCOUNTER 2022-05-15 11:03 | Outpatient (CLI) | payer OTHER ==
[2022-05-15 12:02] LABS: #Eosinphils 0.1 10x3/uL (0.0-0.5); #Monocytes 0.4 10x3/uL (0.0-1.1); #Neutrophils 2.2 10x3/uL (1.5-8.4); %Basophils 0.7 % (0.0-2.0); %Eosinophils 2.3 % (0.0-6.0); %Lymphocytes 35.4 % (18.0-47.0); %Monocytes 9.7 % (0.0-10.0); %Neutrophils 51.2 % (40.0-75.0); Hemoglobin 13.6 g/dL (12.0-15.5); Mean Corpuscular HGB CONC 33.6 g/dL (32.0-36.0); Mean Corpuscular Hemoglobin 32.2 pg (27.0-33.0); Mean Corpuscular Volume 95.7 fl (81.6-98.3); Mean Platelet Volume 9.9 fl (7.4-10.4); Platelet Count 100 10x3/uL (150-450); RBC Distribution Width 13.9 % (11.5-14.5); Red Blood Cell (RBC) Count 4.23 10x6/uL (3.90-5.03); White Blood Cell (WBC) Count 4.4 10x3/uL (3.5-10.5)
[2022-05-15 12:22] LABS: Anion Gap 13 mmol/L (10-20); BUN (Urea Nitrogen) 14 mg/dL (9.8-20.1); Calc. Creatinine Clearance 0 mL/min (70-130); Calcium 9.1 mg/dL (7.8-10.44); Carbon Dioxide 26 mmol/L (22-29); Chloride 108 mmol/L (98-107); Estimated GFR 85; Glucose 95 mg/dL (70-105); Potassium 4.2 mmol/L (3.5-5.1); Sodium 143 mmol/L (136-145)
== END 2022-05-15 11:04 | disposition home or self-care (01) ==
LOC: LABBT 11:03
PROVIDERS: ATTEND Orthopaedic Surgery
DX: Z01.818 Encounter for other preprocedural examination (principal); M12.812 Other specific arthropathies, not elsewhere classified, left shoulder
CPT/HCPCS: 80048; 85025; 93005; 93010

== ENCOUNTER 2022-05-18 07:09 | Observation (INO) | payer OTHER ==
[2022-05-15 16:07] VITALS: BMI 45.2
[2022-05-18] MEDS ORDERED: Tranexamic Acid 1,000 MG/10 ML VIAL ONE (07:23)
[2022-05-18] MEDS ORDERED: VANCOMYCIN 2 GRAM/500 ML BAG 2 GM in Premix Bag 1 BAG IVPB SCH (07:30)
[2022-05-18] MEDS ORDERED: CEFAZOLIN 2 GM in Sodium Chloride 0.9% 100 ML IVPB SCH (07:30)
[2022-05-18] MEDS ORDERED: FENTANYL 50 MCG/ML 1 ML VIAL ONE (08:24)
[2022-05-18] MEDS ORDERED: Midazolam HCl 2 mg/2 ml Vial ONE (08:24)
[2022-05-18] MEDS ORDERED: Ropivacaine 0.5% HCl/PF (150 MG/30 ML VIAL) ONE (08:24)
[2022-05-18 08:28] LABS: INR-International Normal Ratio 1.2; Prothrombin Time 15.2 sec (12.0-14.7)
[2022-05-18 08:30] LABS: PTT 39.8 sec (22.9-36.1)
[2022-05-18 08:31] LABS: SARS-CoV-2 NAA Rapid Test Not Detected (NotDetected)
[2022-05-18 08:36] LABS: ALT (SGPT) 17 U/L (8-55); AST (SGOT) 31 U/L (5-34); Albumin 3.4 g/dL (3.5-5.0); Alkaline Phosphatase 130 U/L (40-110); Bilirubin, Direct 0.3 mg/dL (0.1-0.3); Bilirubin, Total 0.8 mg/dL (0.2-1.2); Protein, Total 6.4 g/dL (6.0-8.3)
[2022-05-18] MEDS ORDERED: CEFAZOLIN 2 GM VIAL ONE (09:15)
[2022-05-18] MEDS ORDERED: Sodium Chloride 0.9% 100 ML ONE (09:15)
[2022-05-18] MEDS ORDERED: Ondansetron PF 4 MG/2 ML Vial ONE (09:23)
[2022-05-18] MEDS ORDERED: PHENYLEPHRINE-NS 100 MCG/ML 10 ML SYRINGE ONE (09:23)
[2022-05-18] MEDS ORDERED: PROPOFOL 200 MG/20 ML VIAL ONE (09:23)
[2022-05-18] MEDS ORDERED: Glycopyrrolate 0.2 MG/ML 5 ML SYRINGE ONE (09:23)
[2022-05-18] MEDS ORDERED: Rocuronium Bromide 10 MG/ML (10ML VIAL) ONE (09:23)
[2022-05-18] MEDS ORDERED: NEOSTIGMINE 3 MG/3 ML SYR 3 MG/3 ML SYRINGE ONE (09:23)
[2022-05-18] MEDS ORDERED: Dexamethasone 20 MG/5 ML VIAL ONE (09:23)
[2022-05-18] MEDS ORDERED: Phenylephrine 10 MG/ML VIAL ONE (09:24)
[2022-05-18] MEDS ORDERED: FENTANYL 50 MCG/ML 1 ML VIAL SLOW IVP PRN (10:21)
[2022-05-18] MEDS ORDERED: HYDROcodone/Acetaminophen 10/325 mg Tablet PO PRN ×2 (10:30→12:04)
[2022-05-18] MEDS ORDERED: traMADol HCl 50 MG TAB PO PRN ×4 (10:30→12:04)
[2022-05-18] MEDS ORDERED: Promethazine HCl 25 MG/ML VIAL IM PRN ×2 (10:30→10:47)
[2022-05-18] MEDS ORDERED: Ondansetron PF 4 MG/2 ML Vial IVP PRN ×2 (10:30→12:04)
[2022-05-18] MEDS ORDERED: Zolpidem Tartrate 5 MG TAB PO PRN (10:30)
[2022-05-18] MEDS ORDERED: Ropivacaine 0.2% 550 ML 550 ML NERVE BLCK SCH (10:30)
[2022-05-18] MEDS ORDERED: Promethazine HCl 25 MG/ML VIAL IVPB PRN (10:47)
[2022-05-18] MEDS ORDERED: Ondansetron HCl/PF 4 MG/2 ML Vial IVP PRN (10:47)
[2022-05-18] MEDS ORDERED: Milk Of Magnesia 30 ML UDCUP PO PRN (12:04)
[2022-05-18] MEDS ORDERED: Ondansetron ODT 4 MG TAB PO PRN (12:04)
[2022-05-18] MEDS ORDERED: Morphine 4 MG/ML VIAL SLOW IVP PRN (12:14)
[2022-05-18] MEDS: Acetaminophen/Codeine 30-300mg Tablet PO SCH ×2 (15:45→20:51)
[2022-05-18] MEDS: CEFAZOLIN 2 GM in Sodium Chloride 0.9% 100 ML IVPB SCH (18:16)
[2022-05-18] MEDS: Ketorolac Tromethamine 30 MG/ML VIAL IVP SCH (18:17)
[2022-05-18] MEDS: Gabapentin 300 MG CAP PO SCH (18:24)
[2022-05-19] MEDS: CEFAZOLIN 2 GM in Sodium Chloride 0.9% 100 ML IVPB SCH
[2022-05-19] MEDS: HYDROcodone/Acetaminophen 10/325 mg Tablet PO PRN ×2 (04:49→11:33)
[2022-05-19] MEDS: Ketorolac Tromethamine 30 MG/ML VIAL IVP SCH ×3 (04:51→11:33)
[2022-05-19] MEDS: Acetaminophen/Codeine 30-300mg Tablet PO SCH ×2 (08:19→15:52)
[2022-05-19] MEDS: Gabapentin 300 MG CAP PO SCH (08:19)
[2022-05-19] MEDS ORDERED: Furosemide 40 MG TAB PO SCH (09:00)
[2022-05-19] MEDS ORDERED: DULoxetine 60 MG CAP PO SCH (09:00)
[2022-05-19] MEDS ORDERED: Meloxicam 15 MG TAB PO SCH (09:00)
[2022-05-19] MEDS ORDERED: Senokot S 8.6-50 MG TAB PO SCH (09:00)
[2022-05-19] MEDS ORDERED: Albuterol Sulfate 2.5 mg/0.5 ml Neb NEB PRN (09:02)
[2022-05-19] MEDS ORDERED: Carvedilol 3.125 MG TAB PO SCH ×2 (10:30→21:00)
[2022-05-19] MEDS ORDERED: Oxybutynin ER 5 MG TAB PO SCH (10:30)
[2022-05-19] MEDS ORDERED: Potassium Chloride 10 MEQ TAB PO SCH (10:30)
[2022-05-19] MEDS ORDERED: Ipratropium Bromide 2.5 ml Neb NEB SCH (13:00)
[2022-05-19] MEDS ORDERED: tiZANidine HCl 4 MG TAB PO SCH (15:00)
[2022-05-19 16:01] VITALS: BP 134/78; TEMP 98.1
[2022-05-19] MEDS ORDERED: Gabapentin 300 MG CAP PO SCH (17:00)
[2022-05-19] MEDS ORDERED: Atorvastatin Calcium 10 MG TAB PO SCH (21:00)
[2022-05-19] MEDS ORDERED: traZODone HCl 50 MG TAB PO SCH (21:00)
[2022-05-19] MEDS ORDERED: Zonisamide 100 MG CAP PO SCH (21:00)
[2022-05-20] MEDS ORDERED: Potassium Chloride 10 MEQ TAB PO SCH (09:00)
[2022-05-20] MEDS ORDERED: Oxybutynin ER 5 MG TAB PO SCH (09:00)
[2022-05-20] MEDS ORDERED: Alogliptin 25 MG TAB PO SCH (09:00)
[2022-05-21] MEDS ORDERED: FLU VACC QS2022-23(6MOS UP)/PF 60 MCG/0.5 ML SYRINGE IM ONE (09:00)
== END 2022-05-19 17:15 | disposition home or self-care (01) ==
LOC: SDC 07:09 → SURG A 13:02
PROVIDERS: ADMIT Orthopaedic Surgery; ATTEND Orthopaedic Surgery
PROC: 0RRK00Z Replacement of Left Shoulder Joint with Reverse Ball and Socket Synthetic Substitute, Open Approach (ICD-10-PCS; principal; 2022-05-18)
DX: M12.812 Other specific arthropathies, not elsewhere classified, left shoulder (principal); E11.9 Type 2 diabetes mellitus without complications; E78.5 Hyperlipidemia, unspecified; J43.9 Emphysema, unspecified; G47.33 Obstructive sleep apnea (adult) (pediatric); I11.0 Hypertensive heart disease with heart failure; I50.9 Heart failure, unspecified; M81.0 Age-related osteoporosis without current pathological fracture; Z87.891 Personal history of nicotine dependence; Z79.1 Long term (current) use of non-steroidal anti-inflammatories (NSAID); Z79.84 Long term (current) use of oral hypoglycemic drugs; Z79.899 Other long term (current) drug therapy; Z88.5 Allergy status to narcotic agent; Z96.642 Presence of left artificial hip joint; Z96.652 Presence of left artificial knee joint; Z20.822 Contact with and (suspected) exposure to COVID-19
CPT/HCPCS: 36415; 80076; 85610; 85730; 94640; 96374; 96375; 96376; A4306; C1713; C1776; G0378; J1100; J1885; J2250; J2270; J2370; J2405; J2704; J2795; J3010; J3370; J3490; U0002

== ENCOUNTER 2022-08-03 23:27 | Emergency (ER) | payer OTHER ==
[~2022-08-03 23:27] MED LIST: Iopamidol-370 76% 500 ML 1 ML ONE
[2022-08-04 00:26] LABS: Hemoglobin 13.6 g/dL (12.0-16.0); Mean Corpuscular HGB CONC 32.7 g/dL (32.0-36.0); Mean Corpuscular Hemoglobin 33.2 pg (27.0-31.0); RBC Distribution Width 12.9 % (11.5-14.5)
[2022-08-04] MEDS ORDERED: Morphine 4 MG/ML VIAL ONE (00:43)
[2022-08-04 00:46] LABS: #Basophils 0.1 thou/uL (0.0-0.2); #Eosinphils 0.1 thou/uL (0.0-0.7); #Lymphocytes 1.9 thou/uL (1.20-3.40); #Monocytes 0.4 thou/uL (0.11-0.59); #Neutrophils 3.5 thou/uL (1.40-6.50); %Basophils 0.8 % (0.0-1.0); %Eosinophils 1.3 % (0.0-10.0); %Lymphocytes 31.9 % (21.0-51.0); %Monocytes 6.9 % (0.0-10.0); Mean Platelet Volume 7.6 fL (7.4-10.4); Platelet Count 108 10x3/uL (130-400); Platelet Morphology Comment Appears Decreased
[2022-08-04 00:49] LABS: ALT (SGPT) 17 U/L (8-55); AST (SGOT) 37 U/L (5-34); Albumin 3.4 g/dL (3.5-5.0); Alkaline Phosphatase 150 U/L (40-110); Anion Gap 11 mmol/L (10-20); BUN (Urea Nitrogen) 7 mg/dL (9.8-20.1); Bilirubin, Total 0.5 mg/dL (0.2-1.2); Calc. Creatinine Clearance 0 mL/min (70-130); Calcium 9.6 mg/dL (7.8-10.44); Carbon Dioxide 27 mmol/L (22-29); Chloride 111 mmol/L (98-107); Estimated GFR 95; Globulin 2.9 g/dL (2.4-3.5); Glucose 111 mg/dL (70-105); Lipase 132 U/L (8-78); Potassium 3.9 mmol/L (3.5-5.1); Protein, Total 6.3 g/dL (6.0-8.3); Sodium 145 mmol/L (136-145)
[2022-08-04] MEDS ORDERED: Pantoprazole 40 MG VIAL ONE (02:02)
[2022-08-04] MEDS ORDERED: Ondansetron PF 4 MG/2 ML Vial ONE (02:02)
== END 2022-08-04 02:15 | disposition home or self-care (01) ==
LOC: ERS 23:27
DX: K74.60 Unspecified cirrhosis of liver (principal); E11.9 Type 2 diabetes mellitus without complications; I50.9 Heart failure, unspecified; J43.9 Emphysema, unspecified; Z87.891 Personal history of nicotine dependence; Z79.899 Other long term (current) drug therapy
CPT/HCPCS: 74177; 80053; 83690; 85025; 96374; 96375; C9113; J2270; J2405; Q9967

== ENCOUNTER 2023-05-17 00:09 | Emergency (ER) | payer OTHER, SELFPAY ==
[2023-05-17] MEDS ORDERED: Ibuprofen 200 MG TAB ONE (00:55)
[2023-05-17] MEDS ORDERED: Acetaminophen 325 MG TAB ONE (00:55)
== END 2023-05-17 01:00 | disposition home or self-care (01) ==
LOC: ERS 00:09
DX: Z76.0 Encounter for issue of repeat prescription (principal); G40.909 Epilepsy, unspecified, not intractable, without status epilepticus; J43.9 Emphysema, unspecified; F17.290 Nicotine dependence, other tobacco product, uncomplicated; E11.9 Type 2 diabetes mellitus without complications; I11.0 Hypertensive heart disease with heart failure; I50.9 Heart failure, unspecified; G47.30 Sleep apnea, unspecified; Z79.899 Other long term (current) drug therapy; Z79.84 Long term (current) use of oral hypoglycemic drugs; Z79.1 Long term (current) use of non-steroidal anti-inflammatories (NSAID)
CPT/HCPCS: 99282

== ENCOUNTER 2023-07-05 22:40 | Emergency (ER) | payer OTHER, SELFPAY ==
[~2023-07-05 22:40] MED LIST changes: +Iopamidol 370 76% 100 ML VIAL ONE; -Iopamidol-370 76% 500 ML 1 ML ONE
[2023-07-05] MEDS ORDERED: Albuterol 2.5 MG (0.5 mL) NEB ONE (22:52)
[2023-07-05] MEDS ORDERED: Ipratropium/Albuterol 3 ML NEB ONE (22:53)
[2023-07-05] MEDS ORDERED: Aspirin Chewable 81 MG TAB ONE (22:53)
[2023-07-05 23:12] LABS: #Eosinphils 0.2 thou/uL (0.0-0.7); #Monocytes 0.5 thou/uL (0.11-0.59); #Neutrophils 3.4 thou/uL (1.40-6.50); %Basophils 0.6 % (0.0-1.0); %Eosinophils 2.5 % (0.0-10.0); %Lymphocytes 40.9 % (21.0-51.0); %Monocytes 7.1 % (0.0-10.0); %Neutrophils 48.6 % (42.0-75.0); Hematocrit 41.9 % (36.0-47.0); Hemoglobin 13.6 g/dL (12.0-16.0); Mean Corpuscular HGB CONC 32.5 g/dL (32.0-36.0); Mean Corpuscular Hemoglobin 32.5 pg (27.0-31.0); Mean Platelet Volume 9.7 fL (7.4-10.4); Platelet Count 119 10x3/uL (130-400); RBC Distribution Width 14.4 % (11.5-14.5); Red Blood Cell (RBC) Count 4.19 mill/uL (4.20-5.40); White Blood Cell (WBC) Count 7.1 10x3/uL (4.8-10.8)
[2023-07-05 23:50] LABS: Troponin I Less than 0.010 ng/mL (< 0.028)
[2023-07-05 23:53] LABS: ALT (SGPT) 21 U/L (8-55); AST (SGOT) 47 U/L (5-34); Albumin 3.3 g/dL (3.5-5.0); Alkaline Phosphatase 178 U/L (40-110); Anion Gap 14 mmol/L (10-20); BUN (Urea Nitrogen) 8 mg/dL (9.8-20.1); Bilirubin, Total 1.1 mg/dL (0.2-1.2); Calc. Creatinine Clearance 0 mL/min (70-130); Calcium 8.7 mg/dL (7.8-10.44); Carbon Dioxide 26 mmol/L (22-29); Chloride 103 mmol/L (98-107); Estimated GFR 93; Globulin 2.7 g/dL (2.4-3.5); Glucose 120 mg/dL (70-105); Lipase 129 U/L (8-78); Magnesium 1.6 mg/dL (1.6-2.6); Potassium 3.7 mmol/L (3.5-5.1); Sodium 139 mmol/L (136-145)
[2023-07-06] MEDS ORDERED: Albuterol 2.5 MG (0.5 mL) NEB ONE (00:11)
[2023-07-06] MEDS ORDERED: Dexamethasone 10 MG/ML VIAL ONE (00:12)
[2023-07-06] MEDS ORDERED: Ipratropium/Albuterol 3 ML NEB ONE (00:12)
[2023-07-06] MEDS ORDERED: Magnesium 2 GM/50 ML BAG (IN WATER) ONE (00:12)
[2023-07-06 02:43] LABS: SARS-CoV-2 NAA Rapid Test Not Detected (NotDetected)
== END 2023-07-06 02:28 | disposition home or self-care (01) ==
LOC: ERS 22:40
DX: J44.1 Chronic obstructive pulmonary disease with (acute) exacerbation (principal); F17.290 Nicotine dependence, other tobacco product, uncomplicated
CPT/HCPCS: 36415; 71045; 71275; 80053; 83690; 83735; 83880; 84484; 85025; 85379; 93005; 94760; 96365; 96366; 96375; J1100; J3475; J7611; J7620; Q9967